=== PATIENT | female | born 1955 | race African-American/Black ===

== ENCOUNTER 2019-07-20 09:47 | Inpatient (IN) | payer OTHER, SELFPAY ==
[2019-07-20] VITALS (16 sets, daily range): BP systolic 111–176; BP diastolic 73–119; PULSE 76–148; RESP 19–28; TEMP 35.9–37.1; O2SAT 94–99; BMI 42.9
--- NOTE | 2019-07-20 | ECHO_ITS ---
Patient Info Name: Sofia Blevins Age: 64 years : 1955 Gender: Female Ht: 62 in Wt: 230 lbs BSA: 2.20 m2 HR: 94 bpm BP: 156 / 102 mmHg Heart Rhythm: Sinus Rhythm Technical Quality: Good Exam Date: 07/20/2019 4:04 PM Exam Location: [facility] Patient Status: Inpatient Admit Date: 07/20/2019 Staff Ordering Physician: Ollie Hayes MD Career Services Assistant: Osman Amado RDCS Attending Provider: Indira Siu MD Exam Type: CA echo doppler color flow Study Info Indications I51.9 - Heart disease, unspecified Complete two-dimensional, color flow and Doppler transthoracic echocardiogram is performed. Strain analysis performed. History/Risk Factors Aflutter s/p cardioversion; HTN, DM2, CHF. Summary 1. Left ventricular chamber dimension is mildly enlarged. 2. Left ventricular systolic function is mildly reduced, estimated at 35-40%. 3. Left atrial chamber dimension is moderately enlarged. 4. There is moderate mitral valve regurgitation. Left Ventricle Left ventricular chamber dimension is mildly enlarged. Left ventricular systolic function is mildly reduced, estimated at 35-40%. The left ventricular diastolic function is normal. Right Ventricle Right ventricular chamber dimension is normal. Left Atria Left atrial chamber dimension is moderately enlarged. Right Atria Right atrial chamber dimension is normal. Aortic Valve The aortic valve is normal. Pulmonic Valve The pulmonic valve is normal. Mitral Valve The mitral valve has normal leaflets. There is moderate mitral valve regurgitation. Tricuspid Valve The tricuspid valve leaflets are normal. Pericardium/Pleural The pericardium appears normal. Aorta The aortic root size at the sinus of Valsalva is normal. Left Ventricular Outflow Tract Name Value Normal LVOT 2D LVOT Diameter 1.9 cm LVOT Doppler LVOT Peak Gradient 3 mmHg LVOT Mean Gradient 2 mmHg LVOT VTI 13 cm LVOT VTI/AV VTI Ratio 0.7 LVOT Stroke Volume 40 ml LVOT CO 3.6 l/min LVOT CI 1.6 l/min/m2 Mitral Valve Name Value Normal MV Doppler MV Peak Gradient 2 mmHg MV Mean Gradient 1 mmHg MV [place] 920 cm/s2 MV PHT 40 ms MV Area (PHT) 5.6 cm2 4.0-5.0 MV Area (Cont Eq VTI) 3.0 cm2 MV Regurgitation Doppler MR Volume (Cont Eq) 62 ml MR Fraction (Cont Eq) 61 % MR ERO
--- NOTE | ~2019-07-20 | XR_ITS ---
EXAMINATION: XR chest 1V portable INDICATION: Respiratory failure TECHNIQUE: Portable AP chest at 0513 hours COMPARISON: 07/20/2019 FINDINGS: A mild diffuse interstitial pattern is present. The previously described small right pleura l effusion is no longer evident. There are stable bibasilar opacities. Cardiomegaly is unchanged. IMPRESSION: 1. Cardiomegaly with mild pulmonary edema. 2. Stable bibasilar airspace opacities, likely mild pulmonary edema or less likely pneumonia. Reviewed, dictated and finalized at location A. IMPRESSION: 1. Cardiomegaly with mild pulmonary edema. 2. Stable bibasilar airspace opacities, likely mild pulmonary edema or less lik susie pneumonia.
--- NOTE | ~2019-07-20 | XR_ITS ---
EXAMINATION: XR chest 2V DATE: 07/22/2019 09:23 INDICATION: Cough and wheezing TECHNIQUE: Frontal and lateral views of the chest are obtained COMPARISON: 07/21/2019 FINDINGS: A mild diffuse interstitial pattern persists but has decreased. There is stable cardiomegal y. No pleural effusion or pneumothorax is identified. Bibasilar airspace opacities have also decrease d. IMPRESSION: 1. Cardiomegaly with improving pulmonary edema. Reviewed, dictated and finalized at location A.
--- NOTE | ~2019-07-20 | XR_ITS ---
EXAMINATION: XR chest 1V portable DATE: 07/20/2019 10:15 INDICATION: Chest pain TECHNIQUE: frontal view of the chest was obtained. COMPARISON: None FINDINGS: Radio megaly with pulmonary vascular congestion. Opacities with peribronchial cuffing in the bilatera l lower lung zones and favor mild pulmonary edema over atelectasis or pneumonia. Small right pleural effusion. No pneumothorax. Mild to moderate degenerative skeletal changes in the spine and both shoul ders. IMPRESSION: 1. Likely congestive heart failure with cardiomegaly, pulmonary vascular congestion, small right pleu ral effusion and likely mild pulmonary edema at the lung bases. Differential includes less likely pne umonia. Reviewed, dictated and finalized at location A. IMPRESSION: 1. Likely congestive heart failure with cardiomegaly, pulmonary vascular conges tion, small right pleural effusion and likely mild pulmonary edema at the lung bases. Differential includes less likely pneumonia.
--- NOTE | ~2019-07-20 | US_ITS ---
US renal BI DATE: 07/22/2019 13:17 INDICATION: Rising serum creatinine level TECHNIQUE: Real time imaging of the kidneys and bladder area COMPARISON: None FINDINGS: Right kidney measures 8.9 cm length, left kidney 8.6 cm. No hydronephrosis of either kidne y is detected. There is an 8 mm hyperechoic mass of the lower pole of the right kidney, likely an angiomyolipoma. There is a 12 mm hyperechoic baylee of the left kidney, likely an angiomyolipoma. Approximately 7 mm left renal cyst. Bladder is not demonstrated, not sufficiently distended. 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 Reviewed, dictated and finalized at location A.
--- NOTE | 2019-07-20 09:54 | ECG_ITS ---
Measurements Intervals [place] Rate: 100 P: OR: 0 QRS: 63 QRSD: 94 T: 262 QT: 364 QTc: 469 Interpretive Statements ATRIAL FLUTTER/TACHYCARDIA WITH RAPID VENTRICULAR RESPONSE BORDERLINE T WAVE ABNORMALITY- INF/LAT LEADS BASELINE ARTIFACT- I, III, AVR, AVL, V1, V4-V6 ABNORMAL ECG Electronically Signed On 07-20-2019 11:25:43 CDT by Salty Mari D.O.
[2019-07-20 10:26] LABS: Basophils Percent Auto 0.6 % (0.2-1.2); Eosinophils Absolute Auto 0.1 K/mm3 (0-0.3); Eosinophils Percent Auto 1.3 % (0-4.4); Hematocrit 38.7 % (37.0-47.0); Hemoglobin 11.9 g/dL (12.0-15.0); Immature Granulocyte Absolute 0.01 K/mm3 (0.00-0.031); Immature Granulocyte Percent A 0.2 % (0-0.5); Lymphocytes Absolute Auto 1.71 K/mm3 (0.9-3.2); Lymphocytes Percent Auto 31.8 % (18.3-44.2); Mean Corpuscular HGB Conc 30.7 g/dl (32-36); Mean Corpuscular Hemoglobin 28.6 pg (26-34); Mean Platelet Volume 11.8 fl (7.4-10.4); Monocytes Absolute Auto 0.4 K/mm3 (0.1-0.6); Monocytes Percent Auto 6.5 % (2.6-8.5); Neutrophils Absolute Auto 3.2 K/mm3 (1.3-6.7); Neutrophils Percent Auto 59.6 % (45.5-73.1); Platelet Count Result 240 k/mm3 (150-375); Red Blood Count 4.16 M/mm3 (4.2-5.4); Red Cell Distribution Width 15.6 % (11.5-14.5); White Blood Count 5.4 K/mm3 (4.5-10.0)
--- NOTE | 2019-07-20 10:28 | ECG_ITS ---
Measurements Intervals [place] Rate: 148 P: VT: 0 QRS: 131 QRSD: 90 T: 230 QT: 206 QTc: 324 Interpretive Statements ATRIAL FLUTTER/TACHYCARDIA WITH RAPID VENTRICULAR RESPONSE CONSIDER LIMB LEAD REVERSAL NONSPECIFIC ST & T-WAVE ABNORMALITY- INF/LAT LEADS ABNORMAL ECG Electronically Signed On 07-20-2019 11:24:57 CDT by Salty Mari D.O.
[2019-07-20] MEDS: ADENOSINE IV SOLN 6 MG/2 ML VIAL IV PUSH (10:29)
[2019-07-20] MEDS: SODIUM CHLORIDE 0.9% IV 1,000 ML 999 ML (10:29)
[2019-07-20 10:39] LABS: Alanine Aminotransferase 44 U/L (4-35); Alkaline Phosphatase 106 U/L (38-126); Aspartate Amino Transferase 49 U/L (14-36); Bilirubin,Total 0.6 mg/dL (0.2-1.3); Blood Urea Nitrogen 31 mg/dL (7-17); Calcium 9.3 mg/dL (8.4-10.2); Carbon Dioxide 25 mmol/L (22-30); Chloride 107 mmol/L (98-107); Estimated CRCL calculation 30 ml/min; Estimated Glomerular Filt Rate 25; Glucose 98 mg/dL (65-105); Potassium 3.5 mmol/L (3.4-5.0); Sodium 139 mmol/L (137-145)
[2019-07-20 10:51] LABS: Troponin I 0.027 ng/mL (0.000-0.034)
[2019-07-20 11:03] LABS: Add Urine Microscopic? YES; Appearance Urine Clear (Clear); Bilirubin Urine Negative (Negative); Blood Urine Negative (Negative); Color Urine Straw (Yellow); Glucose Urine UA Negative (Negative); Ketones Urine Negative (Negative); Leukocyte Esterase Ur Negative LEU/UL (Negative); Mucus Urine Rare /lpf; Nitrate Urine Negative (Negative); Protein Urine 2+ mg/dL (Negative); RBC Urine 0-2 /hpf (0-2); Specific Grav Ur 1.011 (1.001-1.035); Squamous Epithelial Cell Urine Few /hpf (Few); Urobilinogen Urine Negative mg/dL (<2.0); WBC Urine 0-3 /hpf
[2019-07-20 11:11] LABS: Prothrombin Time 13.3 Seconds (11.1-14.7)
[2019-07-20] MEDS: AMIODARONE 150 MG/3 ML VIAL (11:13)
--- NOTE | 2019-07-20 11:19 | PC.NURSE ---
1029 Per EDP via verbal order readback give 6mg adenosine IVP due to Pt. HR not decreasing from diltiazem. Pt. tolerated administration of medication. EKG obtained, Pt. was in Atrial Flutter. Heart rate decreased but did not remain stable and increased back to 140s. Per EDP via verbal order readback give 25mg IVP of diltiazem drip at 10mls/hr. See [facility] charting for documentation. Heart did not decrease with diltiazem drip after 15mins, Per EDP via verbal order readback give 150mg amiodarone IVP slowly and stop Diltiazem drip for now. See MAR documentation for charting.
--- NOTE | 2019-07-20 11:43 | PC.NURSE ---
Assumed care of pt from Darline Sneed at 1120
--- NOTE | 2019-07-20 12:16 | ED.CHESTPAIN ---
HPI - Chest Pain General Chief Complaint: Chest Pain Stated Complaint: Heart racing Time Seen by Provider: 07/20/19 09:49 Source: patient Mode of arrival: EMS Limitations: no limitations History of Present Illness HPI narrative: 64-year-old with a history of diabetes, renal insufficiency, hypertension here with complaints of chest discomfort and palpitations since this morning. Patient states that she woke up with these complaints went to urgent care and was later referred here to the ER. She presently denies any shortness of breath. No history of nausea or vomiting or fever. She denies previous history of any coronary artery disease or irregular heartbeat. complaint: chest pain Onset (ago): hour(s) (6) Timing of current episode: constant Prior episodes: No Onset: during rest Pain location: substernal Pain radiation: none Severity: moderate Quality: other (Discomfort) Relieving factors: nothing Exacerbating factors: nothing Associated symptoms: dyspnea Risk Factors Coronary artery disease risk factors: diabetes Thoracic aortic dissection risk factors: none Related Data Home Medications Medication Instructions Recorded Confirmed allopurinol 100 mg PO DAILY 07/20/19 07/20/19 atorvastatin 07/20/19 lisinopril 20 mg PO DAILY 07/20/19 07/20/19 sitagliptin [Januvia] 25 mg PO DAILY 07/20/19 07/20/19 Allergies Allergy/AdvReac Type Severity Reaction Status Date / Time No Known Allergies Allergy Verified 07/20/19 09:57 Review of Systems Review of Systems: All systems reviewed & are unremarkable except as noted in HPI and below Constitutional: Constitutional: Reports no additional constitutional complaints Eyes: Eyes: Reports no additional eye complaints ENT: Reports system reviewed and no additional complaints, except as documented Cardiovascular: Cardiovascular: Reports no additional cardiovascular complaints Respiratory: Respiratory: Reports no additional respiratory complaints Gastrointestinal: Gastrointestinal: Reports no additional gastrointestinal complaints Musculoskeletal: Musculoskeletal: Reports no additional musculoskeletal complaints Integumentary/Breasts: Skin/Breast: Reports system reviewed and no additional complaints, except as docu Allergic/Immunologic: Allergic/Immunologic: Reports no additional allergic/immunologic complaints PMFSH Social History Social History Gender identity (if verbalized by the patient): Female Exam Narrative: Exam Narrative: GENERAL: Well-appearing, well-nourished, and in no acute distress. HEAD: Normocephalic, atraumatic. EYES: PERRLA and EOMI. ENT: Nares clear, no rhinorrhea or epistaxis. Mucous membranes moist. NECK: Supple. CHEST: Clear to auscultation. No respiratory distress. HEART: Tachycardic. ABDOMEN: Soft, nontender, nondistended, normal active bowel sounds. EXTREMITIES: Normal range of motion. No edema. SKIN: Warm, dry, no rash. NEURO: No focal deficits. Alert and oriented x3. PSYCH: Normal mood and affect. Course Course Emergency Course: EKG findings suggest of atrial flutter with rapid ventricular response I have given initially 20 mg of diltiazem IV push which did not bring the heart rate down, I have given Adenocard 6 mg to slow down to see underlying rhythm which showed a flutter it went right back up to 146, started on the diltiazem drip which did not make any difference in the heart rate. I did discuss with cardiology recommended IV amiodarone 150 mg push which did not change the heart rate. I again called and Shakir informed her about the heart rate., Advised to start on Cardizem drip and admit to ICU under the hospitalist. Patient remained stable has no complaints at this time. I did inform her about her lab work. Vital Signs Vital signs: Vital Signs Temperature 37.1 C 07/20/19 09:52 Pulse Rate 148 H 07/20/19 09:52 Respiratory Rate 25 H 07/20/19 09:52 Blood Pressure 176/
[2019-07-20 12:29] LABS: Partial Thromboplastin Time 29.9 SECONDS (22.3-36.8)
[2019-07-20] MEDS: HEPARIN SOD/D5W 100 UNITS/ML 25,000 UNITS/250 ML BAG 13 UNITS IV CONT (12:44)
[2019-07-20] MEDS: HEPARIN SODIUM 5,000 UNITS/ML VIAL 4000 UNITS IV PUSH (12:44)
[2019-07-20] MEDS: FUROSEMIDE INJ 40 MG/4 ML VIAL IV PUSH (13:21)
--- NOTE | 2019-07-20 13:32 | WPDCNINT ---
Assessment and Plan Assessment and plan (1) Atrial flutter with rapid ventricular response: Code(s): I48.92 - Unspecified atrial flutter Status: Acute Assessment and Plan: patient was given adenosine in the ED with only temporary response. she also received amiodarone bolus. Cardiology was consulted in the ED patient now on Cardizem infusion. I will add IV Lopressor. if this does not work will try amiodarone infusion echocardiogram ordered aspirin heparin infusion check TSH (2) CHF (congestive heart failure): Code(s): I50.9 - Heart failure, unspecified Status: Acute Assessment and Plan: Lasix 40 mg IV ordered 1. Likely congestive heart failure with cardiomegaly, pulmonary vascular congestion, small right pleural effusion and likely mild pulmonary edema at the lung bases. Differential includes less likely pneumonia. check echo cardiology consulted (3) Community acquired pneumonia: Code(s): J18.9 - Pneumonia, unspecified organism Status: Acute Assessment and Plan: although patient's white count is normal signs symptoms suggestive of infectious etiology. Check blood and sputum culture check influenza empiric IV Rocephin and doxycycline check lactic acid (4) Suspected COVID-19 virus infection: Code(s): R68.89 - Other general symptoms and signs Status: Acute Assessment and Plan: COVID-19 suspected. SARS-CoV-2 PCR ordered and pending Patient is in Airborne, Droplet and Contact Isolation check CRP LDH ferritin (5) CKD (chronic kidney disease): Qualifiers: Chronic kidney disease stage: unspecified stage Qualified Code(s): N18.9 - Chronic kidney disease, unspecified Code(s): N18.9 - Chronic kidney disease, unspecified Status: Acute Assessment and Plan: patient appears to have history of chronic kidney disease although baseline creatinine is unknown will try to obtain records monitor urine output creatinine and electrolytes Lasix IV given for hypervolemia (6) Hypertension: Code(s): I10 - Essential (primary) hypertension Status: Acute Assessment and Plan: patient is on Cardizem drip I will also add IV Lopressor hold lisinopril due to elevated creatinine at this time until baseline creatinine is available (7) Diabetes mellitus: Code(s): E11.9 - Type 2 diabetes mellitus without complications Status: Acute Assessment and Plan: hold Januvia start sliding scale insulin at this time Additional Plan DVT prophylaxis - patient will be on heparin drip Stress ulcer prophylaxis - not indicated Nutrition - NPO Code Status - Full Code Total Critical Care Time - 35 minutes Due to a high probability of clinically significant, life threatening deterioration, the patient required my highest level of preparedness to intervene emergently and I personally spent this critical care time directly and personally managing the patient. This critical care time included obtaining a history; examining the patient; pulse oximetry; ordering and review of studies; arranging urgent treatment with development of a management plan; evaluation of patient's response to treatment; frequent reassessment; and discussions with other providers. It was exclusive of separately billable procedures and treating other patients and teaching time. Please see Assessment and Plan section and the rest of the note for further information on patient assessment and treatment [employer] Consult Note Consult date: 07/20/19 Time Seen: 13:00 HPI: Sofia Blevins is a 64 year old female with past medical history of CKD, diabetes and hypertension who presented to ER with chief complaint of shortness of breath and cough. Patient was found to be in atrial flutter. patient was given adenosine which only temporarily help. patient was also given amiodarone bolus after consultation with Cardiology which did not wor
[2019-07-20 14:42] LABS: Alveolar/Arterial O2 Gradient 35.7 mmHg; Fractional Inspired Oxygen 21 %; HCO3 ABG 22.1 mEq/l (22.0-26.0); Oxygen Content ABG 16.5 %vol (16.0-22.0); Oxygen Saturation ABG 92.4 % (95.0-100.0); PO2 ABG 66.1 mmHg (80.0-100.0); PO2 FiO2 Ratio Arterial Blood 3.15 %; pH ABG 7.361 (7.350-7.450)
[2019-07-20 14:44] LABS: Device ROOM AIR; Modified Allen's Test Pass; Site Drawn RIGHT RADIAL
[2019-07-20] MEDS: PROPOFOL IV EMULSION 200 MG/20 ML VIAL 50 MG IV PUSH (15:00)
--- NOTE | 2019-07-20 15:16 | WPDCARDPROC ---
Cardiac Cath Procedure Note Date of procedure:: 07/20/19 Performing physician:: Roberto Yoo MD Indication:: Atrial flutter with rapid ventricular response Brief clinical history:: 64-year-old patient with a history of hypertension and diabetes presenting with abrupt onset of dyspnea found to be in atrial flutter with 2-1 conduction. Procedure Procedure performed:: DC cardioversion Sedation/Medication given:: Propofol 50 mg IV push Estimated blood loss:: No blood loss Procedure note:: Patient was placed in the supine position defibrillator patches were placed in the AP position. Patient had 2 L of nasal cannula oxygen placed with IV running in both antecubital veins. The patient was then sedated with propofol 50 mg IV push which provided excellent sedation. She was cardioverted in a synchronized fashion with 200 joules x1 shock which restored normal sinus rhythm. Findings:: Successful uncomplicated DC cardioversion of atrial flutter to sinus rhythm using 200 joules x1 shock Conclusion:: As above
--- NOTE | 2019-07-20 15:20 | PM.CNCAR ---
Assessment and Plan Additional Plan Hypertensive 64-year-old black female with from the onset of shortness of breath probably coinciding with occurrence of atrial flutter with RVR far earlier today. She has no previous cardiovascular history and does not appear to be greatly hemodynamically impairs by this but is clearly symptomatic with dyspnea. At this time I will recommend electrically cardioverting her to sinus rhythm. She is anticoagulated with an IV heparin infusion that was started in the emergency department. She is receiving IV diltiazem intravenously. I will discontinue that since it has having no significant impact on her heart rate and we are about to restore sinus rhythm. Roberto Yoo MD [facility] History of Present Illness History of Present Illness Consult date/time: Date of service: 07/20/19 15:20 Reason For Visit: Atrial fibrillation w rapid ventricular response Narrative: This is a 64-year-old patient without a prior history of cardiovascular problems and she came to the hospital emergency room a short time ago because of suddenly noticing the onset of shortness of breath at work. She works as a healthcare social worker at [employer] and suddenly developed a sense of air hunger and after having this for 2 or 3 hours it was not subsiding and she decided to come in for evaluation. In the emergency department she was found to be tachycardic her ECGs reveals that she is in atrial flutter with 2-1 conduction. She is not a very much aware of the sense of tachycardia but she is of shortness of breath. She says she had a similar episode of this the middle of last week she thinks Tuesday or Tuesday which lasted for maybe 30 minutes to an hour and then resolved. She denies any sense of exertional symptoms such as chest pain pressure or heaviness she does not notice sense of palpitation she has never had a syncopal episode she is not experiencing orthopnea PND or accumulating edema. She was seen in the emergency room by the fish receiver who also with pain history of she feeling unwell with a productive cough for 8-10 days for that reason she has also been admitted to rule out a del valle virus. She sees a primary care physician chronically for hypertension and diabetes she says she has had these ailments for about 15 years and both are under good control she takes lisinopril for blood pressure and Januvia for diabetes. Review of Systems Constitutional: Constitutional: Reports no additional constitutional complaints Eyes: Eyes: Reports no additional eye complaints ENT: Reports system reviewed and no additional complaints, except as documented Cardiovascular: Cardiovascular: Reports as per HPI Respiratory: Respiratory: Reports cough (Productive of yellow sputum) Gastrointestinal: Gastrointestinal: Reports no additional gastrointestinal complaints Musculoskeletal: Musculoskeletal: Reports no additional musculoskeletal complaints Neurologic: Reports system reviewed and no additional complaints, except as documented Endocrine: Endocrine: Reports no additional endocrine complaints Allergic/Immunologic: Allergic/Immunologic: Reports no additional allergic/immunologic complaints [facility] Past Medical History Medical History (Updated 07/20/19 @ 13:38 by Ollie Hayes MD) CKD (chronic kidney disease) Diabetes mellitus Hypertension Social History Social History (Updated 07/20/19 @ 13:34 by Ollie Hayes MD) Smoking status: Never smoker Alcohol intake: never Substance use: never Gender identity (if verbalized by the patient): Female Meds Home Medications and Allergies Home Medications Medication Instructions Recorded Confirmed Type allopurinol 50 mg PO DAILY 07/20/19 07/20/19 History lisinopril 20 mg PO DAILY 07/20/19 07/20/19 History simvastatin 40 mg PO DAILY 07/20/19 07/20/19 History sitagliptin [Januvia] 25 mg PO DAILY 07/20/19 07/20/19 History Allergies Allergy/AdvReac Type Severity Reaction Status Date / Time No Kno
--- NOTE | 2019-07-20 15:26 | ECG_ITS ---
Measurements Intervals [place] Rate: 83 P: 64 AR: 124 QRS: 68 QRSD: 94 T: 107 QT: 361 QTc: 426 Interpretive Statements SINUS RHYTHM VENTRICULAR PREMATURE COMPLEX BORDERLINE T WAVE ABNORMALITY- ANT/LAT LEADS BASELINE ARTIFACT- AVF, V1 BORDERLINE ECG Electronically Signed On 07-20-2019 16:00:16 CDT by Salty Mari D.O.
[2019-07-20 16:01] LABS: Basophils Percent Auto 0.5 % (0.2-1.2); Eosinophils Percent Auto 0.3 % (0-4.4); Hematocrit 36.3 % (37.0-47.0); Hemoglobin 11.4 g/dL (12.0-15.0); Immature Granulocyte Absolute 0.01 K/mm3 (0.00-0.031); Immature Granulocyte Percent A 0.2 % (0-0.5); Lymphocytes Absolute Auto 0.95 K/mm3 (0.9-3.2); Lymphocytes Percent Auto 16.2 % (18.3-44.2); Mean Corpuscular HGB Conc 31.4 g/dl (32-36); Mean Corpuscular Hemoglobin 29.5 pg (26-34); Mean Corpuscular Volume 93.8 fl (80-100); Mean Platelet Volume 11.7 fl (7.4-10.4); Monocytes Absolute Auto 0.4 K/mm3 (0.1-0.6); Monocytes Percent Auto 6.6 % (2.6-8.5); Neutrophils Absolute Auto 4.5 K/mm3 (1.3-6.7); Neutrophils Percent Auto 76.2 % (45.5-73.1); Platelet Count Result 224 k/mm3 (150-375); Red Blood Count 3.87 M/mm3 (4.2-5.4); Red Cell Distribution Width 15.5 % (11.5-14.5); White Blood Count 5.9 K/mm3 (4.5-10.0)
[2019-07-20 16:10] LABS: Influenza Control Positive
[2019-07-20 16:15] LABS: CRP 1.9 mg/dL (<1.0); Lactate Dehydrogenase 599 U/L (313-618)
[2019-07-20 16:21] LABS: NT Pro B Type Natriuretic Pept 5060 PG/ML (5-100)
[2019-07-20 16:25] LABS: Troponin I 0.025 ng/mL (0.000-0.034)
--- NOTE | 2019-07-20 16:35 | PM.IMHP ---
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 She is not sure she has had any exposure to covid 19. The patient has had a cough for at least 10 days which is been dry in nature. She has been afebrile. No nausea vomiting. She does have a history of diabetes chronic renal failure and hypertension. The patient was complaining of having some chest discomfort and palpitations since this morning. She has not had any previous history arrhythmias. She is not short of breath and she is on room air. She was seen by Cardiology as well as head doffer. The patient was found to be in atrial flutter with rapid response. Her chest x-ray was read as likely congestive heart failure with cardiomegaly, pulmonary vascular congestion, small right pleural effusion and likely mild pulmonary edema at the lung bases. Differential includes it less likely pneumonia. I spoke with the head doffer who felt that it was best 2. Ishmael treat the patient for community-acquired pneumonia and tested for covid 19. I also spoke with the senior mechanical estimator who had cardioverted the patient back into sinus rhythm. To that when the patient was in the emergency room they attempted adenosine which did slow the heart rate down low enough to determine that it was atrial flutter. She was also given amiodarone and started on a diltiazem drip. She was also given IV Lasix as well as Lopressor. Patient is currently in ICU and is in sinus rhythm with a controlled rate in the 80s. Date of service 07/20/2019. Review of Systems Review of Systems: All systems reviewed & are unremarkable except as noted in HPI and below Constitutional: Constitutional: Reports as per HPI and Reports no additional constitutional complaints Eyes: Eyes: Reports as per HPI and Reports no additional eye complaints ENT: Reports system reviewed and no additional complaints, except as documented and Reports Normal hearing present Cardiovascular: Cardiovascular: Reports no additional cardiovascular complaints Respiratory: Respiratory: Reports no additional respiratory complaints and Reports no additional respiratory complaints Gastrointestinal: Gastrointestinal: Reports as per HPI and Reports no additional gastrointestinal complaints Musculoskeletal: Musculoskeletal: Reports no additional musculoskeletal complaints Integumentary/Breasts: Skin/Breast: Reports system reviewed and no additional complaints, except as docu and Reports as per HPI Neurologic: Reports system reviewed and no additional complaints, except as documented, Reports as per HPI and Reports Normal hearing present Psychiatric: Psychiatric: Reports no additional psychiatric complaints and Reports as per HPI Endocrine: Endocrine: Reports no additional endocrine complaints Hematologic/Lymphatic: Hematologic/Lymphatic: Reports no additional hematologic/lymphatic complaints Allergic/Immunologic: Allergic/Immunologic: Reports no additional allergic/immunologic complaints [facility] Past Medical History Medical History (Updated 07/20/19 @ 16:52 by Mariela Arreaga NP) CKD (chronic kidney disease) Diabetes mellitus Fractured tibia and fibula With plates and screws Gout Hyperlipidemia Hypertension Surgical History Surgical History (Updated 07/20/19 @ 16:52 by Mariela Arreaga NP) History of open reduction and internal fixation (ORIF) procedure Right tibia and fibula with plates and screws Family History Family History (Updated 07/20/19 @ 16:55 by Mariela Arreaga NP) Mother Diabetes mellitus Hypertension Father Emphysema lung Social History Social History (Updated 07/20/19 @ 16:56 by Mariela Arreaga NP) Social History: The patient is single and she has 2 children. Her mother jaylene Black is a durable power united [employer] attorney for healthcare. The patient desires to be a full code. She is a cook station a
[2019-07-20] MEDS: SOTALOL HCL 80 MG TABLET PO (16:56)
[2019-07-20] MEDS: SODIUM CHLORIDE 0.9% IV 1,000 ML 100 ML IV CONT (16:58)
[2019-07-20 18:28] LABS: Glucose Point of Care 107 (65-105)
--- NOTE | 2019-07-20 18:54 | ECG_ITS ---
Measurements Intervals [place] Rate: 77 P: 73 CO: 92 QRS: 81 QRSD: 93 T: 102 QT: 392 QTc: 446 Interpretive Statements SINUS RHYTHM WITH SHORT CO INTERVAL POSSIBLE LEFT ATRIAL ENLARGEMENT NONSPECIFIC T-WAVE ABNORMALITY- ANTEROLAT/LAT LEADS BASELINE ARTIFACT- V4-V6 BORDERLINE ECG Electronically Signed On 07-21-2019 8:47:42 CDT by Salty Mari D.O.
[2019-07-20 20:10] LABS: Troponin I 0.026 ng/mL (0.000-0.034)
--- NOTE | 2019-07-20 20:17 | ADMGEN ---
This patient, Sofia Blevins, was admitted to Intensive Care Unit-4. Patient/family oriented to hospital policies and general routines including ID bracelet, bed and alarms, visiting hours, pain management, procedures, bathroom and other care routines, personal items, smoking policy, room service/diet, and visiting hours. Valuables list has been completed. Information on how to activate the Rapid Response Team has been discussed. Patient/Family are encouraged to report perceived risks to care and to ask questions if they do not understand what they are told or what they should do.
[2019-07-20 20:22] LABS: Partial Thromboplastin Time > 200.0 SECONDS (22.3-36.8)
[2019-07-20] MEDS: ONDANSETRON INJ 4 MG/2 ML VIAL IV PUSH (21:02)
[2019-07-20 21:09] LABS: Glucose Point of Care 188 (65-105)
[2019-07-21] VITALS (15 sets, daily range): BP systolic 100–140; BP diastolic 60–91; PULSE 62–87; RESP 14–28; TEMP 35.5–36.7; O2SAT 94–100
[2019-07-21 05:02] LABS: Basophils Percent Auto 0.2 % (0.2-1.2); Hematocrit 27.4 % (37.0-47.0); Hemoglobin 8.7 g/dL (12.0-15.0); Immature Granulocyte Absolute 0.01 K/mm3 (0.00-0.031); Immature Granulocyte Percent A 0.2 % (0-0.5); Lymphocytes Percent Auto 23.7 % (18.3-44.2); Mean Corpuscular HGB Conc 31.8 g/dl (32-36); Mean Corpuscular Hemoglobin 29.5 pg (26-34); Mean Corpuscular Volume 92.9 fl (80-100); Mean Platelet Volume 11.5 fl (7.4-10.4); Monocytes Absolute Auto 0.3 K/mm3 (0.1-0.6); Monocytes Percent Auto 6.1 % (2.6-8.5); Neutrophils Absolute Auto 3.5 K/mm3 (1.3-6.7); Neutrophils Percent Auto 69.8 % (45.5-73.1); Platelet Count Result 178 k/mm3 (150-375); Red Blood Count 2.95 M/mm3 (4.2-5.4); Red Cell Distribution Width 15.4 % (11.5-14.5); White Blood Count 5.1 K/mm3 (4.5-10.0)
[2019-07-21 05:20] LABS: Hemoglobin A1C 5.7 % (<5.7)
[2019-07-21] MEDS: SOTALOL HCL 80 MG TABLET PO ×2 (05:52→17:53)
[2019-07-21 06:24] LABS: Alanine Aminotransferase 46 U/L (4-35); Albumin Level 3.4 g/dL (3.5-5.1); Alkaline Phosphatase 93 U/L (38-126); Aspartate Amino Transferase 47 U/L (14-36); Bilirubin,Total 0.5 mg/dL (0.2-1.3); Blood Urea Nitrogen 31 mg/dL (7-17); Calcium 8.6 mg/dL (8.4-10.2); Carbon Dioxide 25 mmol/L (22-30); Chloride 104 mmol/L (98-107); Estimated CRCL calculation 27 ml/min; Estimated Glomerular Filt Rate 26; Glucose 95 mg/dL (65-105); Magnesium 1.8 mg/dL (1.6-2.3); Potassium 3.3 mmol/L (3.4-5.0); Sodium 137 mmol/L (137-145)
[2019-07-21 06:27] LABS: Partial Thromboplastin Time > 200.0 SECONDS (22.3-36.8)
--- NOTE | 2019-07-21 07:50 | WPDINTPN ---
Progress Note: A&P Assessment and Plan (1) Atrial flutter with rapid ventricular response: Code(s): I48.92 - Unspecified atrial flutter Status: Acute Assessment and Plan: patient was given adenosine in the ED with only temporary response. she also received amiodarone bolus. Cardiology was consulted in the ED and patient was started on Cardizem infusion. in ICU patient was cardioverted by Cardiology patient was also started on sotalol she has stated normal sinus rhythm echocardiogram ordered aspirin heparin infusion at this time. Cardiology planning to transition to oral anticoagulation today normal TSH (2) CHF (congestive heart failure): Code(s): I50.9 - Heart failure, unspecified Status: Acute Assessment and Plan: Lasix 40 mg IV was given yesterday patient now on nasal cannula and in no respiratory distress check echo will hold further Lasix at this time due to elevated creatinine (3) Community acquired pneumonia: Code(s): J18.9 - Pneumonia, unspecified organism Status: Acute Assessment and Plan: although patient's white count is normal signs symptoms suggestive of infectious etiology. blood and sputum culture pending negative influenza on empiric IV Rocephin and doxycycline (4) Suspected COVID-19 virus infection: Code(s): R68.89 - Other general symptoms and signs Status: Acute Assessment and Plan: COVID-19 suspected. SARS-CoV-2 PCR ordered and pending Patient is in Airborne, Droplet and Contact Isolation inflammatory markers like CRP LDH ferritin are negative if PCR is negative will discontinue isolation measures (5) CKD (chronic kidney disease): Qualifiers: Chronic kidney disease stage: unspecified stage Qualified Code(s): N18.9 - Chronic kidney disease, unspecified Code(s): N18.9 - Chronic kidney disease, unspecified Status: Acute Assessment and Plan: patient appears to have history of chronic kidney disease although baseline creatinine is unknown will try to obtain records monitor urine output creatinine and electrolytes Lasix IV was given for hypervolemia (6) Hypertension: Code(s): I10 - Essential (primary) hypertension Status: Acute Assessment and Plan: treat as needed (7) Diabetes mellitus: Code(s): E11.9 - Type 2 diabetes mellitus without complications Status: Acute Assessment and Plan: hold Januvia on sliding scale insulin at this time Additional Plan DVT prophylaxis - patient is on heparin drip Stress ulcer prophylaxis - not indicated Nutrition - advance diet today Code Status - Full Code transfer out of ICU today case discussed with cardiology and Internal Medicine Subjective Date/time seen: 07/21/19 0750 overnight events reviewed. Patient was cardioverted by Cardiology yesterday afternoon. Patient has done well since then and feels better today. She denies any shortness of breath. she continues to have cough. Denies any fever chest pain nausea. she had 1 episode of vomiting. One loose bowel movement overnight. no headache or abdominal pain. no evidence of blood in stool or urine Review of Systems Review of Systems: All systems reviewed & are unremarkable except as noted in HPI and below Exam Narrative: Exam Narrative: General: Pt is alert awake and in NAD Lungs/Chest: Trachea central Clear BS B/L, Bibasilar crackles, no wheezing. mild tachypnea Cardiac: regular rate and rhythm. Normal S1 S2. No murmurs Circulation: Pedal pulses are intact and symmetrical. Abdomen: Normal bowel sounds.. Soft. NT. ND. Extremities: No clubbing, cyanosis. Warm. slight edema bilaterally : no tenderness in pelvic area Neurologic: Follows commands. Moves all 4 extremities PERRL, alert oriented x3 Skin: No Rash Objective Data Vital Signs Vital Signs: Vital Signs - 24 hr 07/20/19 09:52 07/20/19
[2019-07-21] MEDS: ASPIRIN 325 MG TABLET PO (08:48)
[2019-07-21] MEDS: POTASSIUM CHLORIDE 20 MEQ TABLET 40 MEQ PO (08:48)
[2019-07-21] MEDS: allopurinoL 50 MG TABLET PO (08:49)
[2019-07-21] MEDS: SIMVASTATIN 20 MG TABLET 40 MG PO (08:49)
--- NOTE | 2019-07-21 09:44 | PM.PNCARD ---
Progress Note: A&P Additional Plan 64-year-old female with: Episode of symptomatic atrial flutter with RVR. Currently in sinus rhythm following DC cardioversion yesterday evening. Patient is now been started on antiarrhythmic therapy in the form of sotalol. I will discontinue heparin and start Xarelto for systemic anticoagulation. SHAHEEN-inhibitor will be started in the form of ramipril as her echocardiogram demonstrates [id number] left ventricular systolic dysfunction, left atrial enlargement and moderate mitral regurgitation resulting from annular dilation. The structure of her mitral valve leaflets appears unremarkable. The MR is functional and related to LV dysfunction and enlargement in my opinion. Will have to keep her in the hospital at least until tomorrow to ensure that she is not proarrhythmic to sotalol. Twelve lead ECG should be checked tomorrow to watch QT interval. She can moved to [facility] Roberto Yoo MD [facility] Subjective Date/time seen: Date of service: 07/21/19 09:44 Interval history: Follow-up visit in the 64-year-old female with symptomatic atrial flutter with RVR Patient electrically cardioverted yesterday afternoon to normal sinus rhythm History of hypertension and axd-[id number] diabetes Asymptomatic today feels better Exam Const: General: comfortable and no acute distress HENMT: Mouth: Yes moist mucous membranes Eyes: Sclera: sclerae normal Pupils: Equal, round and reactive pupils present Neck: Neck: supple and no JVD Thyroid: thyroid normal Other: No audible carotid bruits Resp: Effort & Inspection: normal respiratory effort Auscultation: clear to auscultation bilaterally Cardio: Rate: regular rate Rhythm: regular rhythm GI: Auscultation: normal bowel sounds Skin: General skin exam: normal color Neuro: Cognition (Neuro): normal cognition Extrem: General: normal to inspection Objective Data Vital Signs Vital Signs: Vital Signs - 24 hr 07/20/19 09:52 07/20/19 10:30 07/20/19 10:53 Temperature 37.1 C Pulse Rate 148 H 146 H 78 Respiratory Rate 25 H Blood Pressure 176/119 H Pulse Oximetry 97 07/20/19 11:43 07/20/19 12:58 07/20/19 14:00 Temperature Pulse Rate 142 H 147 H 147 H Respiratory Rate 20 22 H Blood Pressure 142/99 H 175/117 H Pulse Oximetry 94 95 07/20/19 14:22 07/20/19 15:00 07/20/19 15:05 Temperature Pulse Rate 147 H 145 H 146 H Respiratory Rate 22 H 26 H 28 H Blood Pressure 156/108 H 156/108 H Pulse Oximetry 96 99 97 07/20/19 15:10 07/20/19 16:00 07/20/19 16:56 Temperature 36.2 C L Pulse Rate 78 92 103 H Respiratory Rate 24 H 28 H Blood Pressure 127/88 158/102 H Pulse Oximetry 99 96 07/20/19 17:15 07/20/19 18:00 07/20/19 20:00 Temperature 35.9 C L Pulse Rate 93 89 79 Respiratory Rate 27 H 19 25 H Blood Pressure 131/89 111/80 Pulse Oximetry 95 96 94 07/20/19 22:00 07/21/19 00:00 07/21/19 01:39 Temperature 35.9 C L Pulse Rate 76 76 80 Respiratory Rate 25 H 25 H 20 Blood Pressure 115/73 123/80 140/91 H Pulse Oximetry 96 97 95 07/21/19 04:00 07/21/19 05:52 07/21/19 05:55 Temperature 35.5 C L Pulse Rate 81 81 86 Respiratory Rate 25 H 24 H Blood Pressure 129/76 120/75 Pulse Oximetry 100 96 Intake/Output Intake/Output: Intake & Output 07/18/19 07/19/19 07/20/19 07/21/19 23:59 23:59 23:59 23:59 Intake Total 1685 120 Output Total 1600 Balance 85 120 Meds/Results Medications: Active Medications Generic Name Dose Route Start Last Admin Trade Name Freq PRN Reason Stop Dose Admin Acetaminophen 650 mg 07/20/19 12:39 Tylenol Tablet PO Q4H PRN Mild Pain (1-3) or Fever Allopurinol 50 mg 07/21/19 09:00 07/21/19 08:49 Zyloprim PO 50 mg DAILY MARK Administration Dextrose 12.5 gm 07/20/19 13:27 Dextrose 50% Syringe IV PUSH PRN PRN Hypoglycemia Protocol Glucagon 1 mg 07/20/19 13:27 Glucagon For Inj IM PRN [facility]
[2019-07-21] MEDS: ramipriL 5 MG CAPSULE PO (11:09)
[2019-07-21 11:30] LABS: Glucose Point of Care 120 (65-105)
[2019-07-21 13:34] LABS: SARS-CoV-2 RNA PCR Negative
--- NOTE | 2019-07-21 15:21 | PM.IMPN ---
Progress Note: A&P Assessment and Plan (1) Atrial flutter with rapid ventricular response: Code(s): I48.92 - Unspecified atrial flutter Status: Acute Assessment and Plan: . The patient was cardioverted 07/19 and is now in sinus rhythm. The patient is going to be on oral sotalol. Transitioned from heparin to Xarelto THYROID LEVEL WAS CHECKED AND IS NORMAL. (2) CHF (congestive heart failure): Code(s): I50.9 - Heart failure, unspecified Status: Acute Assessment and Plan: echo EF 35-40%. With enlarged left atrium.. Now on SHAHEEN-inhibitor, beta-snehal, and received diuretic yesterday.. 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 With normal white cell count. And blood cultures return negative will discontinue antibiotics 07/21 (4) Suspected COVID-19 virus infection: Code(s): R68.89 - Other general symptoms and signs Status: Acute Assessment and Plan: Patient has been tested and is negative Influenza is negative. CRP is slightly elevated. And the lactate dehydrogenase is negative. (5) Hyperlipidemia: Code(s): E78.5 - Hyperlipidemia, unspecified Status: Chronic Assessment and Plan: Continue with simvastatin. (6) Gout: Code(s): M10.9 - Gout, unspecified Status: Chronic Assessment and Plan: Continue with allopurinol. (7) CKD (chronic kidney disease): Qualifiers: Chronic kidney disease stage: unspecified stage Qualified Code(s): N18.9 - Chronic kidney disease, unspecified Code(s): N18.9 - Chronic kidney disease, unspecified Status: Acute Assessment and Plan: Patient's creatinine is 2.0 and I cannot tell where her baseline is. . CHECK BMP DAILY (8) Hypertension: Code(s): I10 - Essential (primary) hypertension Status: Acute Assessment and Plan: Patient's blood pressure is good today on SHAHEEN-inhibitor a and sotalol. on p.r.n. hydralazine as well. (9) Diabetes mellitus: Code(s): E11.9 - Type 2 diabetes mellitus without complications Status: Acute Assessment and Plan: Accu-Cheks AC and HS [id number] 5.7 (10) Anemia: Code(s): D64.9 - Anemia, unspecified Status: Acute Assessment and Plan: Probable anemia of chronic disease but hemoglobin dropped more overnight. Follow CBC and check iron TIBC and B12 level Subjective Date/time seen: 07/21/19 15:21 Interval history: 64-year-old hypertensive type 2 diabetic with chronic renal failure admitted with palpitations and found to be in atrial flutter. She was electrical cardioverted and placed on sotalol and remains in sinus rhythm at present time. No complaints fever chills cough is and no further palpitation with no chest pain.. Feels much better this a.m.. Exam Narrative: Exam Narrative: Blood pressure 114/70 pulse 74 saturating 98% on room air afebrile Lungs are clear CV regular rate rhythm no murmurs or gallops Abdomen is soft nontender no masses Extremities without edema distal pulses are 2+ Neuro alert pleasant cooperative no focal deficits Objective Data Vital Signs Vital Signs: Vital Signs - 24 hr 07/20/19 16:00 07/20/19 16:56 07/20/19 17:15 Temperature 36.2 C L Pulse Rate 92 103 H 93 Respiratory Rate 28 H 27 H Blood Pressure 158/102 H Pulse Oximetry 96 95 07/20/19 18:00 07/20/19 20:00 07/20/19 22:00 Temperature 35.9 C L Pulse Rate 89 79 76 Respiratory Rate 19 25 H 25 H Blood Pressure 131/89 111/80 115/73 Pulse Oximetry 96 94 96 07/21/19 00:00 07/21/19 01:39 07/21/19 04:00 Temperature 35.9
[2019-07-21 15:46] LABS: Basophils Percent Auto 0.6 % (0.2-1.2); Eosinophils Absolute Auto 0.1 K/mm3 (0-0.3); Eosinophils Percent Auto 1.1 % (0-4.4); Hematocrit 34.3 % (37.0-47.0); Hemoglobin 10.6 g/dL (12.0-15.0); Immature Granulocyte Absolute 0.02 K/mm3 (0.00-0.031); Immature Granulocyte Percent A 0.4 % (0-0.5); Lymphocytes Absolute Auto 1.79 K/mm3 (0.9-3.2); Lymphocytes Percent Auto 34.1 % (18.3-44.2); Mean Corpuscular HGB Conc 30.9 g/dl (32-36); Mean Platelet Volume 11.1 fl (7.4-10.4); Monocytes Absolute Auto 0.5 K/mm3 (0.1-0.6); Monocytes Percent Auto 9.1 % (2.6-8.5); Neutrophils Absolute Auto 2.9 K/mm3 (1.3-6.7); Neutrophils Percent Auto 54.7 % (45.5-73.1); Nucleated Red Blood Cells Perc 0.4 % (0.0-0.2); Platelet Count Result 212 k/mm3 (150-375); Red Blood Count 3.65 M/mm3 (4.2-5.4); Red Cell Distribution Width 15.6 % (11.5-14.5); White Blood Count 5.3 K/mm3 (4.5-10.0)
[2019-07-21 16:21] LABS: Glucose Point of Care 109 (65-105)
[2019-07-21] MEDS: RIVAROXABAN 20 MG TABLET PO (17:53)
--- NOTE | 2019-07-21 20:03 | ECG_ITS ---
Measurements Intervals [place] Rate: 71 P: 64 [place]: 120 QRS: 65 QRSD: 94 T: 83 QT: 511 QTc: 557 Interpretive Statements SINUS RHYTHM BORDERLINE T WAVE ABNORMALITY- LATERAL LEADS PROLONGED QT INTERVAL ABNORMAL ECG Electronically Signed On 07-23-2019 13:19:56 CDT by Salty Mari D.O.
[2019-07-21 20:42] LABS: Glucose Point of Care 142 (65-105)
[2019-07-21] MEDS: ONDANSETRON INJ 4 MG/2 ML VIAL IV PUSH (20:47)
[2019-07-21] MEDS: GUAIFENESIN/DEXTROMETHORPHAN 10 ML UDC PO (20:48)
[2019-07-22] VITALS (24 sets, daily range): BP systolic 117–146; BP diastolic 64–91; PULSE 69–107; RESP 16–24; TEMP 35.5–36.8; O2SAT 94–100
[2019-07-22 05:40] LABS: Alanine Aminotransferase 51 U/L (4-35); Albumin Level 3.3 g/dL (3.5-5.1); Alkaline Phosphatase 104 U/L (38-126); Aspartate Amino Transferase 56 U/L (14-36); Bilirubin,Total 0.3 mg/dL (0.2-1.3); Blood Urea Nitrogen 42 mg/dL (7-17); Calcium 8.6 mg/dL (8.4-10.2); Carbon Dioxide 24 mmol/L (22-30); Chloride 105 mmol/L (98-107); Estimated CRCL calculation 20 ml/min; Estimated Glomerular Filt Rate 18; Glucose 93 mg/dL (65-105); Potassium 3.5 mmol/L (3.4-5.0); Sodium 136 mmol/L (137-145)
[2019-07-22 06:06] LABS: Glucose Point of Care 103 (65-105)
[2019-07-22 06:07] LABS: Iron 51 ug/dL (37-170)
[2019-07-22 06:16] LABS: Percent Iron Saturation 18 % (20-50)
[2019-07-22] MEDS: allopurinoL 50 MG TABLET PO (08:31)
[2019-07-22] MEDS: ramipriL 5 MG CAPSULE PO (08:31)
[2019-07-22] MEDS: SIMVASTATIN 20 MG TABLET 40 MG PO (08:31)
[2019-07-22] MEDS: GUAIFENESIN/DEXTROMETHORPHAN 10 ML UDC PO (08:49)
--- NOTE | 2019-07-22 10:25 | PM.PNCARD ---
Progress Note: A&P Additional Plan Patient is relatively stable. Her QT interval has lengthened on sotalol. I will reduce the dose for this reason and because of the wheezing and stop azithromycin. Anticipate discharge tomorrow barring any problems Will conduct an ischemia evaluation as an outpatient because of LV systolic dysfunction Roberto Yoo MD [facility] Subjective Date/time seen: Date of service: 07/22/19 10:25 Interval history: Follow-up visit in 64-year-old lady with atrial flutter of unknown chronicity Patient was cardioverted electrically to sinus rhythm and placed on treatment with sotalol and Xarelto. She has also been started on ramipril as echocardiogram demonstrated modest LV systolic dysfunction Patient feels better this morning she did notice some wheezing last night which affected her ability to get to sleep. Staff held this morning's dose of sotalol because of QT interval Exam Const: General: comfortable and no acute distress HENMT: Mouth: Yes moist mucous membranes Eyes: Sclera: sclerae normal Pupils: Equal, round and reactive pupils present Neck: Neck: supple and no JVD Thyroid: thyroid normal Resp: Effort & Inspection: normal respiratory effort Auscultation: clear to auscultation bilaterally Other: No audible wheezing at this time Cardio: Rate: regular rate Rhythm: regular rhythm GI: Auscultation: normal bowel sounds Neuro: Cognition (Neuro): normal cognition Extrem: General: normal to inspection Objective Data Vital Signs Vital Signs: Vital Signs - 24 hr 07/21/19 12:00 07/21/19 14:00 07/21/19 16:00 Temperature 36.7 C 36.4 C Pulse Rate 74 76 77 Respiratory Rate 23 H 23 H 28 H Blood Pressure 113/71 112/76 127/81 Pulse Oximetry 98 94 98 07/21/19 18:00 07/21/19 19:46 07/21/19 20:00 Temperature 36.6 C Pulse Rate 78 74 74 Respiratory Rate 16 16 Blood Pressure 100/60 Pulse Oximetry 98 98 07/21/19 22:00 07/21/19 23:26 07/22/19 00:00 Temperature 36.2 C L Pulse Rate 70 70 70 Respiratory Rate 18 18 Blood Pressure 110/69 Pulse Oximetry 100 100 07/22/19 02:00 07/22/19 03:49 07/22/19 04:00 Temperature 36.4 C Pulse Rate 71 71 78 Respiratory Rate 16 16 Blood Pressure 146/83 H Pulse Oximetry 99 99 07/22/19 05:35 07/22/19 07:42 07/22/19 08:00 Temperature 36.1 C L Pulse Rate 73 81 74 Respiratory Rate 20 Blood Pressure 137/91 H Pulse Oximetry 100 07/22/19 10:02 Temperature Pulse Rate 82 Respiratory Rate Blood Pressure Pulse Oximetry Intake/Output Intake/Output: Intake & Output 07/19/19 07/20/19 07/21/19 07/22/19 23:59 23:59 23:59 23:59 Intake Total 1685 1526 540 Output Total 1600 0 Balance 85 1526 540 Meds/Results Medications: Active Medications Generic Name Dose Route Start Last Admin Trade Name Freq PRN Reason Stop Dose Admin Acetaminophen 650 mg 07/20/19 12:39 Tylenol Tablet PO Q4H PRN Mild Pain (1-3) or Fever Allopurinol 50 mg 07/21/19 09:00 07/22/19 08:31 Zyloprim PO 50 mg DAILY MARK Administration Dextrose 12.5 gm 07/20/19 13:27 Dextrose 50% Syringe IV PUSH PRN PRN Hypoglycemia Protocol Glucagon 1 mg 07/20/19 13:27 Glucagon For Inj IM PRN PRN Hypoglycemia Protocol Glucose 15 gm 07/20/19 13:27 Glutose 15 PO PRN PRN Hypoglycemia Protocol Guaifenesin/Dextromethorphan 10 ml 07/20/19 19:56 07/22/19 08:49 Robitussin-Dm Syrup PO 10 ml Q4H PRN Administration Cough Ceftriaxone Sodium 2 gm in 100 mls @ 200 mls/hr 07/20/19 14:00 07/21/19 16:07 Rocephin 2 Gm/D5w 100 Ml IVPB Infused Q24H MARK Infusion Dextrose 1,000 mls @ 100 mls/hr 07/20/19 13:27 Dextrose 5% 1,000 Ml IVPB PRN PRN Hypoglycemia Protocol Insulin Aspart 3 - 6 units 07/21/19 06:30 07/22/19 06:03 Novolog SUB-Q Not Given AC MARK Protocol Ipratropium [place] 0.5 mg 07/22/19 08
[2019-07-22 12:05] LABS: Glucose Point of Care 84 (65-105)
[2019-07-22] MEDS: SOTALOL HCL 40 MG TABLET PO ×2 (12:18→21:56)
[2019-07-22 13:47] LABS: Basophils Percent Auto 0.6 % (0.2-1.2); Eosinophils Absolute Auto 0.1 K/mm3 (0-0.3); Eosinophils Percent Auto 1.2 % (0-4.4); Hematocrit 37.2 % (37.0-47.0); Hemoglobin 11.5 g/dL (12.0-15.0); Immature Granulocyte Absolute 0.04 K/mm3 (0.00-0.031); Immature Granulocyte Percent A 0.6 % (0-0.5); Lymphocytes Percent Auto 26.1 % (18.3-44.2); Mean Corpuscular HGB Conc 30.9 g/dl (32-36); Mean Corpuscular Hemoglobin 28.9 pg (26-34); Mean Corpuscular Volume 93.5 fl (80-100); Mean Platelet Volume 11.7 fl (7.4-10.4); Monocytes Absolute Auto 0.4 K/mm3 (0.1-0.6); Monocytes Percent Auto 6.5 % (2.6-8.5); Neutrophils Absolute Auto 4.2 K/mm3 (1.3-6.7); Platelet Count Result 227 k/mm3 (150-375); Red Blood Count 3.98 M/mm3 (4.2-5.4); Red Cell Distribution Width 15.5 % (11.5-14.5); White Blood Count 6.5 K/mm3 (4.5-10.0)
--- NOTE | 2019-07-22 14:18 | ECG_ITS ---
Measurements Intervals [place] Rate: 76 P: 75 [place]: 123 QRS: 66 QRSD: 97 T: 83 QT: 397 QTc: 448 Interpretive Statements SINUS RHYTHM NONSPECIFIC T-WAVE ABNORMALITY- LATERAL LEADS BORDERLINE ECG Electronically Signed On 07-22-2019 15:05:07 CDT by Salty Mari D.O.
[2019-07-22 16:23] LABS: Glucose Point of Care 89 (65-105)
[2019-07-22] MEDS: RIVAROXABAN 20 MG TABLET PO (17:13)
--- NOTE | 2019-07-22 17:33 | PM.IMPN ---
Progress Note: A&P Assessment and Plan (1) Atrial flutter with rapid ventricular response: Code(s): I48.92 - Unspecified atrial flutter Status: Acute Assessment and Plan: . The patient was cardioverted 07/19 and is now in sinus rhythm. The patient is on oral sotalol and Xarelto . Sotalol dose was decreased with increasing QT and with her renal function. THYROID LEVEL WAS CHECKED AND IS NORMAL. (2) CHF (congestive heart failure): Code(s): I50.9 - Heart failure, unspecified Status: Acute Assessment and Plan: echo EF 35-40%. With enlarged left atrium.. Now on SHAHEEN-inhibitor, beta-snehal, and received diuretic yesterday.. 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 With normal white cell count. Repeat chest x-ray today showed clearing of the infiltrates which were fluid. Blood culture so far negative. Azithromycin discontinued with increasing QT interval and has had 3 doses of ceftriaxone so will discontinue that also Xopenex for bronchospasm Diagnosis of pneumonia is ruled out (4) Suspected COVID-19 virus infection: Code(s): R68.89 - Other general symptoms and signs Status: Acute Assessment and Plan: Patient has been tested and is negative. Influenza is also negative. CRP is slightly elevated. And the lactate dehydrogenase is negative. (5) Hyperlipidemia: Code(s): E78.5 - Hyperlipidemia, unspecified Status: Chronic Assessment and Plan: Continue with simvastatin. (6) Gout: Code(s): M10.9 - Gout, unspecified Status: Chronic Assessment and Plan: Continue with allopurinol. (7) CKD (chronic kidney disease): Qualifiers: Chronic kidney disease stage: unspecified stage Qualified Code(s): N18.9 - Chronic kidney disease, unspecified Code(s): N18.9 - Chronic kidney disease, unspecified Status: Acute Assessment and Plan: Patient's creatinine is up to 3.1. And I cannot tell where her baseline is. . Urine benign. Check renal sonogram. CHECK BMP DAILY (8) Hypertension: Code(s): I10 - Essential (primary) hypertension Status: Acute Assessment and Plan: Patient's blood pressure is good today on SHAHEEN-inhibitor and sotalol. . (9) Diabetes mellitus: Code(s): E11.9 - Type 2 diabetes mellitus without complications Status: Acute Assessment and Plan: Accu-Cheks AC and HS [id number] 5.7 (10) Anemia: Code(s): D64.9 - Anemia, unspecified Status: Acute Assessment and Plan: Probable anemia of chronic disease but hemoglobin dropped more overnight to 8.7 which may have been lab error because repeat today back to 11.5 similar to when she was on admission with normal iron studies and B12 at 398 Subjective Date/time seen: 07/22/19 17:33 Interval history: Date of visit 07/21. 64-year-old hypertensive type 2 diabetic with chronic renal failure admitted with palpitations and found to be in atrial flutter. She was electrical cardioverted and placed on sotalol and remains in sinus rhythm at present time. No complaints fever chills. Some some cough and wheezing but no chills and no further palpitations or chest discomfort.. Exam Narrative: Exam Narrative: Blood pressure 118/64 pulse 72 saturating 95% on room air afebrile Lungs are clear with end expiratory wheezes CV regular rate rhythm no murmurs or gallops Abdomen is soft nontender no masses Extremities without edema distal pulses are 2+ Neuro alert pleasant cooperative no focal deficits Objective Data Vital Signs Vital Signs: Vit
[2019-07-22 20:46] LABS: Glucose Point of Care 88 (65-105)
[2019-07-22] MEDS: MELATONIN 3 MG TABLET PO (21:57)
--- NOTE | 2019-07-22 23:55 | ECG_ITS ---
Measurements Intervals [place] Rate: 71 P: 78 [place]: 116 QRS: 72 QRSD: 100 T: 83 QT: 420 QTc: 456 Interpretive Statements SINUS RHYTHM WITH SHORT MA INTERVAL POSSIBLE LEFT ATRIAL ENLARGEMENT INCOMPLETE RIGHT BUNDLE BRANCH BLOCK BORDERLINE T WAVE ABNORMALITY- ANT/LAT LEADS BORDERLINE ECG Electronically Signed On 07-23-2019 7:02:47 CDT by Salty Mari D.O.
[2019-07-23] VITALS (21 sets, daily range): BP systolic 134–165; BP diastolic 73–90; PULSE 69–107; RESP 16–20; TEMP 36.1–36.7; O2SAT 97–100
[2019-07-23 05:21] LABS: Alanine Aminotransferase 45 U/L (4-35); Albumin Level 3.1 g/dL (3.5-5.1); Alkaline Phosphatase 105 U/L (38-126); Aspartate Amino Transferase 37 U/L (14-36); Bilirubin,Total 0.3 mg/dL (0.2-1.3); Blood Urea Nitrogen 42 mg/dL (7-17); Calcium 8.7 mg/dL (8.4-10.2); Carbon Dioxide 28 mmol/L (22-30); Chloride 105 mmol/L (98-107); Estimated CRCL calculation 24 ml/min; Estimated Glomerular Filt Rate 23; Glucose 91 mg/dL (65-105); Phosphorus 4.2 mg/dL (2.5-4.5); Potassium 3.5 mmol/L (3.4-5.0); Sodium 138 mmol/L (137-145)
[2019-07-23 07:02] LABS: Hepatitis B Surface Antigen Negative (Negative)
[2019-07-23 07:07] LABS: HAV RESULT Negative (Negative); Hepatitis B Core IgM Result Negative (Negative)
[2019-07-23 07:19] LABS: Hepatitis C Virus Antibody Negative (Negative)
[2019-07-23 08:25] LABS: Glucose Point of Care 86 (65-105)
[2019-07-23] MEDS: LEVALBUTEROL HFA (*SP) 15 GM INHALER 2 PUFF INHALATION (08:53)
[2019-07-23] MEDS: POTASSIUM CHLORIDE 20 MEQ TABLET 40 MEQ PO (09:16)
[2019-07-23] MEDS: allopurinoL 50 MG TABLET PO (09:17)
[2019-07-23] MEDS: ramipriL 5 MG CAPSULE PO (09:17)
[2019-07-23] MEDS: SIMVASTATIN 20 MG TABLET 40 MG PO (09:17)
[2019-07-23] MEDS: SOTALOL HCL 40 MG TABLET PO (09:18)
--- NOTE | 2019-07-23 11:08 | ECG_ITS ---
Measurements Intervals [place] Rate: 71 P: 68 [place]: 122 QRS: 67 QRSD: 93 T: 78 QT: 456 QTc: 496 Interpretive Statements SINUS RHYTHM PROLONGED QT INTERVAL ABNORMAL ECG Electronically Signed On 07-23-2019 11:46:24 CDT by Salty Mari D.O.
--- NOTE | 2019-07-23 11:24 | PM.PNCARD ---
Progress Note: A&P Assessment and Plan (1) Hypertension: Code(s): I10 - Essential (primary) hypertension Status: Acute Assessment and Plan: near goal (2) Atrial flutter with rapid ventricular response: Code(s): I48.92 - Unspecified atrial flutter Status: Acute Assessment and Plan: Will discontinue her sotalol completely. Her QTC is nearly 500 milliseconds. Previously anticipated discharge later today but given the significant lengthening of her QT interval, I think she should stay another 24 hours for observation to make sure shortness back up. Continue anticoagulation (3) CHF (congestive heart failure): Code(s): I50.9 - Heart failure, unspecified Status: Acute Assessment and Plan: continue ramipril. No beta-snehal because of wheeziness Additional Plan Will conduct an ischemia evaluation as an outpatient because of LV systolic dysfunction Subjective Date/time seen: 07/23/19 11:24 Interval history: Follow-up visit in 64-year-old lady with atrial flutter of unknown chronicity Patient was cardioverted electrically to sinus rhythm and placed on treatment with sotalol and Xarelto. She has also been started on ramipril as echocardiogram demonstrated modest LV systolic dysfunction Date is service 07/23/2019: she is feeling okay. She denies any chest pain, shortness of breath. Anxious to go home better QTC did lengthen Further and is almost at 500 milliseconds. Review of Systems Constitutional: Constitutional: Reports no additional constitutional complaints Eyes: Eyes: Reports no additional eye complaints ENT: Reports system reviewed and no additional complaints, except as documented Cardiovascular: Cardiovascular: Reports as per HPI Respiratory: Respiratory: Reports cough (Productive of yellow sputum) Gastrointestinal: Gastrointestinal: Reports no additional gastrointestinal complaints Musculoskeletal: Musculoskeletal: Reports no additional musculoskeletal complaints Neurologic: Reports system reviewed and no additional complaints, except as documented Endocrine: Endocrine: Reports no additional endocrine complaints Allergic/Immunologic: Allergic/Immunologic: Reports no additional allergic/immunologic complaints Exam Const: General: comfortable and no acute distress Other: Overweight black female comfortable cooperative in no distress of any sort HENMT: Mouth: Yes moist mucous membranes Eyes: Sclera: sclerae normal Pupils: Equal, round and reactive pupils present Neck: Neck: supple and no JVD Thyroid: thyroid normal Other: No audible carotid bruits Resp: Effort & Inspection: normal respiratory effort Auscultation: clear to auscultation bilaterally Other: No audible wheezing at this time Cardio: Rate: regular rate and tachycardic Rhythm: regular rhythm Other: No audible murmur or gallop PMI is difficult to palpate GI: Auscultation: normal bowel sounds Skin: General skin exam: normal color Neuro: Cranial nerves: Yes Equal, round and reactive pupils present Cognition (Neuro): normal cognition Extrem: General: normal to inspection Objective Data Vital Signs Vital Signs: Vital Signs - 24 hr 07/22/19 11:47 07/22/19 12:00 07/22/19 12:18 Temperature 35.5 C L Pulse Rate 74 75 107 H Respiratory Rate 24 H Blood Pressure 144/86 H Pulse Oximetry 98 07/22/19 14:07 07/22/19 14:11 07/22/19 14:14 Temperature Pulse Rate 78 76 Respiratory Rate 16 Blood Pressure Pulse Oximetry 98 07/22/19 14:18 07/22/19 15:47 07/22/19 16:00 Temperature 36.8 C Pulse Rate 76 73 73 Respiratory Rate 16 20 Blood Pressure 117/64 Pulse Oximetry 95 07/22/19 18:02 07/22/19 19:49 07/22/19 20:00 Temperature 36.6 C Pulse Rate 76 76 85 Respiratory Rate 20 Blood Pressure 145/90 H Pulse Oximetry 94 07/22/19 20:35 07/22/19 20:43 07/22/19 21:39 Temperature Pulse Rate 72 74 78 Respiratory Rate 1
[2019-07-23 12:02] LABS: Glucose Point of Care 113 (65-105)
[2019-07-23 17:20] LABS: Glucose Point of Care 103 (65-105)
--- NOTE | 2019-07-23 17:43 | PM.IMPN ---
Progress Note: A&P Assessment and Plan (1) Atrial flutter with rapid ventricular response: Code(s): I48.92 - Unspecified atrial flutter Status: Acute Assessment and Plan: . The patient was cardioverted 07/19 and is now in sinus rhythm. The patient is on oral sotalol and Xarelto(15 mg with est GFR<50) . Sotalol dose was decreased with increasing QT and with her renal function 07/21 and discontinued today with further lengthening of Qt Tsh normal too. (2) CHF (congestive heart failure): Code(s): I50.9 - Heart failure, unspecified Status: Acute Assessment and Plan: echo EF 35-40%. With enlarged left atrium.. Now on SHAHEEN-inhibitor, , and received diuretic 07/21 and repeat chest xray clear. Cardiology d/c beta snehal with wheezing. It had subsided today. ? low dose coreg (3) Community acquired pneumonia: Code(s): J18.9 - Pneumonia, unspecified organism Status: Acute Assessment and Plan: fourth hand who felt that the patient should be treated for community-acquired pneumonia and was started on Rocephin and azithromycin But x-ray findings are probably more compatible with heart failure especially in light of the fact she has had no fever and no significant cough. With normal white cell count. Repeat chest x-ray 07/21 showed clearing of the infiltrates which suggests fluid. Blood culture so far negative. Azithromycin discontinued with increasing QT interval and has had 3 doses of ceftriaxone so discontinued that also Xopenex for bronchospasm Diagnosis of pneumonia is ruled out (4) Suspected COVID-19 virus infection: Code(s): R68.89 - Other general symptoms and signs Status: Acute Assessment and Plan: Patient has been tested and is negative. Influenza is also negative. CRP is slightly elevated. And the lactate dehydrogenase is negative. (5) Hyperlipidemia: Code(s): E78.5 - Hyperlipidemia, unspecified Status: Chronic Assessment and Plan: Continue with simvastatin. (6) Gout: Code(s): M10.9 - Gout, unspecified Status: Chronic Assessment and Plan: Continue with allopurinol. (7) CKD (chronic kidney disease): Qualifiers: Chronic kidney disease stage: unspecified stage Qualified Code(s): N18.9 - Chronic kidney disease, unspecified Code(s): N18.9 - Chronic kidney disease, unspecified Status: Acute Assessment and Plan: Patient's creatinine was up to 3.1 07/21 and back to 2.6 today with baseline thought to be about 2... . Urine benign. renal sonogram no obstruction. CHECK BMP DAILY (8) Hypertension: Code(s): I10 - Essential (primary) hypertension Status: Acute Assessment and Plan: Patient's blood pressure is good today on SHAHEEN-inhibitor . . (9) Diabetes mellitus: Code(s): E11.9 - Type 2 diabetes mellitus without complications Status: Acute Assessment and Plan: Accu-Cheks AC and HS [id number] 5.7 (10) Anemia: Code(s): D64.9 - Anemia, unspecified Status: Acute Assessment and Plan: Probable anemia of chronic disease but hemoglobin dropped more overnight after admission to 8.7 which may have been lab error because repeat today back to 11.5 similar to when she was on admission with normal iron studies and B12 at 398 Subjective Date/time seen: 07/23/19 17:43 Interval history: Date of visit 07/22. 64-year-old hypertensive type 2 diabetic with chronic renal failure admitted with palpitations and found to be in atrial flutter. She was electrical cardioverted and placed on sotalol and remains in sinus rhythm at present time. No complaints fever chills. Some some cough and wheezing 07/21 but no chills and no further palpitations or chest discomfort.. Slept better with no wheezing now Exam Narrative: Exam Narrative: Blood pressure 140/80 pulse 70 saturating 98% on room air afebrile Lungs are clear with no wheezes today CV regu
[2019-07-23] MEDS: RIVAROXABAN 15 MG TABLET PO (17:47)
[2019-07-23 20:41] LABS: Glucose Point of Care 125 (65-105)
[2019-07-24] VITALS (18 sets, daily range): BP systolic 148–173; BP diastolic 74–96; PULSE 76–84; RESP 20–24; TEMP 36.4–36.8; O2SAT 98–100
[2019-07-24 04:58] LABS: Blood Urea Nitrogen 34 mg/dL (7-17); Calcium 8.9 mg/dL (8.4-10.2); Carbon Dioxide 28 mmol/L (22-30); Chloride 108 mmol/L (98-107); Estimated CRCL calculation 29 ml/min; Estimated Glomerular Filt Rate 29; Glucose 90 mg/dL (65-105); Potassium 3.7 mmol/L (3.4-5.0); Sodium 140 mmol/L (137-145)
[2019-07-24] MEDS: GUAIFENESIN/DEXTROMETHORPHAN 10 ML UDC PO ×2 (05:56→22:06)
--- NOTE | 2019-07-24 07:30 | ECG_ITS ---
Measurements Intervals [place] Rate: 84 P: 77 CT: 121 QRS: 72 QRSD: 92 T: 75 QT: 411 QTc: 487 Interpretive Statements SINUS RHYTHM RSR' IN V1 OR V2, CONSIDER RIGHT VENTRICULAR HYPERTROPHY OR RIGHT VCD BORDERLINE T WAVE ABNORMALITY- LATERAL LEADS BORDERLINE ECG Electronically Signed On 07-24-2019 10:40:26 CDT by Salty Mari D.O.
[2019-07-24 08:44] LABS: Glucose Point of Care 90 (65-105)
[2019-07-24] MEDS: ramipriL 5 MG CAPSULE PO (08:59)
[2019-07-24] MEDS: SIMVASTATIN 20 MG TABLET 40 MG PO (08:59)
[2019-07-24] MEDS: allopurinoL 50 MG TABLET PO (08:59)
[2019-07-24 10:34] LABS: Basophils Percent Auto 0.3 % (0.2-1.2); Eosinophils Absolute Auto 0.1 K/mm3 (0-0.3); Eosinophils Percent Auto 1.8 % (0-4.4); Hemoglobin 11.6 g/dL (12.0-15.0); Immature Granulocyte Absolute 0.02 K/mm3 (0.00-0.031); Immature Granulocyte Percent A 0.3 % (0-0.5); Lymphocytes Absolute Auto 1.21 K/mm3 (0.9-3.2); Lymphocytes Percent Auto 20.2 % (18.3-44.2); Mean Corpuscular HGB Conc 31.4 g/dl (32-36); Mean Corpuscular Volume 92.5 fl (80-100); Mean Platelet Volume 11.3 fl (7.4-10.4); Monocytes Absolute Auto 0.4 K/mm3 (0.1-0.6); Monocytes Percent Auto 7.3 % (2.6-8.5); Neutrophils Absolute Auto 4.2 K/mm3 (1.3-6.7); Neutrophils Percent Auto 70.1 % (45.5-73.1); Platelet Count Result 239 k/mm3 (150-375); Red Cell Distribution Width 15.6 % (11.5-14.5)
--- NOTE | 2019-07-24 11:06 | PM.PNCARD ---
Progress Note: A&P Assessment and Plan (1) Hypertension: Code(s): I10 - Essential (primary) hypertension Status: Acute Assessment and Plan: Above goal (2) Atrial flutter with rapid ventricular response: Code(s): I48.92 - Unspecified atrial flutter Status: Acute Assessment and Plan: QTC is better with discontinuation of sotalol. Continue anticoagulation (3) CHF (congestive heart failure): Code(s): I50.9 - Heart failure, unspecified Status: Acute Assessment and Plan: continue ramipril. will try low-dose carvedilol to see if she tolerates. 3.125 mg p.o. b.i.d. (4) Black stools: Code(s): K92.1 - Melena Status: Acute Assessment and Plan: check a CBC as well as stool guaiac. May need GI consultation. Continue Xarelto for now pending these results Additional Plan Will conduct an ischemia evaluation as an outpatient because of LV systolic dysfunction Subjective Date/time seen: 07/24/19 11:06 Interval history: Follow-up visit in 64-year-old lady with atrial flutter of unknown chronicity Patient was cardioverted electrically to sinus rhythm and placed on treatment with sotalol and Xarelto. She has also been started on ramipril as echocardiogram demonstrated modest LV systolic dysfunction Date is service 07/24/2019: she is feeling okay. She denies any chest pain, shortness of breath. QTC is better. Unfortunately she is describing black stools at this point. Review of Systems Constitutional: Constitutional: Reports no additional constitutional complaints Eyes: Eyes: Reports no additional eye complaints ENT: Reports system reviewed and no additional complaints, except as documented Cardiovascular: Cardiovascular: Reports as per HPI Respiratory: Respiratory: Reports cough (Productive of yellow sputum) Gastrointestinal: Gastrointestinal: Reports melena and Reports change in stool character Musculoskeletal: Musculoskeletal: Reports no additional musculoskeletal complaints Neurologic: Reports system reviewed and no additional complaints, except as documented Endocrine: Endocrine: Reports no additional endocrine complaints Hematologic/Lymphatic: Hematologic/Lymphatic: Denies easy bleeding Allergic/Immunologic: Allergic/Immunologic: Reports no additional allergic/immunologic complaints Exam Const: General: comfortable and no acute distress Other: Overweight black female comfortable cooperative in no distress of any sort HENMT: Mouth: Yes moist mucous membranes Eyes: Sclera: sclerae normal Pupils: Equal, round and reactive pupils present Neck: Neck: supple and no JVD Thyroid: thyroid normal Other: No audible carotid bruits Resp: Effort & Inspection: normal respiratory effort Auscultation: clear to auscultation bilaterally Other: No audible wheezing at this time Cardio: Rate: regular rate and tachycardic Rhythm: regular rhythm Other: No audible murmur or gallop PMI is difficult to palpate GI: Auscultation: normal bowel sounds Skin: General skin exam: normal color Neuro: Cranial nerves: Yes Equal, round and reactive pupils present Cognition (Neuro): normal cognition Extrem: General: normal to inspection Objective Data Vital Signs Vital Signs: Vital Signs - 24 hr 07/23/19 12:00 07/23/19 14:00 07/23/19 16:00 Temperature 36.1 C L 36.6 C Pulse Rate 71 78 82 Respiratory Rate 18 16 Blood Pressure 143/80 H 134/73 Pulse Oximetry 98 100 07/23/19 19:24 07/23/19 19:40 07/23/19 19:56 Temperature 36.7 C Pulse Rate 84 79 Respiratory Rate 20 Blood Pressure 157/80 H Pulse Oximetry 99 97 07/23/19 21:52 07/23/19 23:35 07/23/19 23:44 Temperature 36.7 C Pulse Rate 75 75 77 Respiratory Rate 20 Blood Pressure 165/80 H Pulse Oximetry 97 07/24/19 02:00 07/24/19 04:00 07/24/19 05:52 Temperature 36.6 C Pulse Rate 79 79 76 Respiratory Rate 22 H Blood Pressure 173/86 H Pulse Ox
[2019-07-24 12:08] LABS: Glucose Point of Care 83 (65-105)
[2019-07-24] MEDS: carvediloL 3.125 MG TABLET PO ×2 (13:03→20:48)
[2019-07-24 13:32] LABS: IFOB Positive Control Positive; Immunochemical Fecal Occult Bl Positive (N)
--- NOTE | 2019-07-24 14:57 | PM.IMPN ---
Progress Note: A&P Assessment and Plan (1) Atrial flutter with rapid ventricular response: Code(s): I48.92 - Unspecified atrial flutter Status: Acute Assessment and Plan: [id number]. The patient with AFib and was successfully cardioverted 07/19. She was on Sotalol but stopped due to prolonged QT. She is maintaining NSR. QTc 487 today. She is also on Xarelto (15 mg with est GFR<50). TSH normal. Echo noted. Cardiology following. (2) CHF (congestive heart failure): Code(s): I50.9 - Heart failure, unspecified Status: Acute Assessment and Plan: Echo EF 35-40% with enlarged left atrium. Was on SHAHEEN-inhibitor on admission and changed to Ramapril. Not able to tolerate betablocker due to wheezing. Repeat CXR 07/21 clearing. Cardiology following and appreciate their input. Add hydralazine. (3) Anemia: Code(s): D64.9 - Anemia, unspecified Status: Acute Assessment and Plan: Hgb slightly low but stable in the 10-11 range. Hgb 8.7 once but probably lab error. Probable anemia of chronic disease related to her renal disease. Patient with normal iron studies except sat is low at 18% with low normal ferritin at 40. Pateitn complaining of dark stools and chronic diarrhea. Stool guaiac positive today. Will hold Xarelto and order GI consult. Monitor HH. (4) CKD (chronic kidney disease): Qualifiers: Chronic kidney disease stage: unspecified stage Qualified Code(s): N18.9 - Chronic kidney disease, unspecified Code(s): N18.9 - Chronic kidney disease, unspecified Status: Acute Assessment and Plan: Patient's creatinine was up to 3.1 07/21 and back to 2.1 today with baseline thought to be about 2. Urine benign. Renal sonogram showing no obstruction. Will continue to monitor renal function. (5) Hypertension: Code(s): I10 - Essential (primary) hypertension Status: Acute Assessment and Plan: BP reviewed on 07/24/19. Patient's blood pressure is elevated at times but with a wide range. Currently on Ramapril only. Betablockers can cause whezing. Has CKD so don't want to push the Ramapril dose. Will add low dose hydralazine; add Nitrates if still elevated BP. (6) Diabetes mellitus: Code(s): E11.9 - Type 2 diabetes mellitus without complications Status: Acute Assessment and Plan: A1c 5.7. Glucose reviewed on 07/24/19. Glucose well controlled. Okay to back off on Accu-Cheks. (7) Gout: Code(s): M10.9 - Gout, unspecified Status: Chronic Assessment and Plan: Stable. Continue with allopurinol. (8) Hyperlipidemia: Code(s): E78.5 - Hyperlipidemia, unspecified Status: Chronic Assessment and Plan: AST peaked at 56 but better yesterday at 37. ALT peaked at 51 before trending down. Continue with simvastatin. (9) Suspected COVID-19 virus infection: Code(s): R68.89 - Other general symptoms and signs Status: Acute Assessment and Plan: COVID-19 is negative. Influenza is also negative. (10) Community acquired pneumonia: Code(s): J18.9 - Pneumonia, unspecified organism Status: Acute Assessment and Plan: Ticket Attendant felt that the patient should be treated for CAP and patient was started on Rocephin and azithromycin. However. CXR findings are more compatible with heart failure especially in light of the fact she has had no fever and no significant cough with normal white cell count. Repeat chest x-ray 07/21 showed clearing of the infiltrates which suggests fluid. Blood culture NGTD. Azithromycin discontinued with increasing QT interval and Rocephin stopped after 3 doses. Diagnosis of pneumonia is ruled out Subjective Date/time seen: 07/24/19 14:57 Interval history: Date of visit 07/23. 64yo female with HTN, DM and CKD here with atrial flutter. Assuming care. Chart reviewed. She was electrical cardiovert
[2019-07-24 16:26] LABS: Glucose Point of Care 100 (65-105)
[2019-07-24] MEDS: RIVAROXABAN 15 MG TABLET PO (17:15)
[2019-07-24 20:35] LABS: Glucose Point of Care 102 (65-105)
[2019-07-24] MEDS: MELATONIN 3 MG TABLET PO (20:48)
[2019-07-24] MEDS: hydrALAZINE 10 MG TABLET PO (22:06)
[2019-07-25] VITALS (17 sets, daily range): BP systolic 124–152; BP diastolic 69–99; PULSE 76–131; RESP 18–24; TEMP 36.2–36.8; O2SAT 97–100
[2019-07-25] MEDS: hydrALAZINE 10 MG TABLET PO ×3 (05:45→20:02)
[2019-07-25 05:50] LABS: Glucose Point of Care 97 (65-105)
--- NOTE | 2019-07-25 06:07 | ECG_ITS ---
Measurements Intervals [place] Rate: 124 P: [place]: 0 QRS: 65 QRSD: 89 T: 55 QT: 329 QTc: 474 Interpretive Statements ATRIAL FLUTTER/TACHYCARDIA WITH RAPID VENTRICULAR RESPONSE BORDERLINE T WAVE ABNORMALITY- LATERAL LEADS ABNORMAL ECG Electronically Signed On 07-25-2019 9:55:17 CDT by Salty Mari D.O.
[2019-07-25] MEDS: METOPROLOL TARTRATE INJ 5 MG/5 ML VIAL IV PUSH (06:31)
[2019-07-25] MEDS: carvediloL 3.125 MG TABLET PO ×2 (08:17→20:02)
[2019-07-25] MEDS: ramipriL 5 MG CAPSULE PO (08:17)
[2019-07-25] MEDS: allopurinoL 50 MG TABLET PO (08:17)
[2019-07-25] MEDS: SIMVASTATIN 20 MG TABLET 40 MG PO (08:17)
--- NOTE | 2019-07-25 09:17 | ECG_ITS ---
Measurements Intervals [place] Rate: 120 P: [place]: 0 QRS: 54 QRSD: 89 T: -76 QT: 400 QTc: 565 Interpretive Statements ATRIAL FLUTTER/TACHYCARDIA WITH RAPID VENTRICULAR RESPONSE ABNORMAL ECG Electronically Signed On 07-25-2019 9:55:38 CDT by Salty Mari D.O.
--- NOTE | 2019-07-25 09:31 | PM.PNCARD ---
Progress Note: A&P Additional Plan 64-year-old lady with: Symptomatic atrial flutter. The after cardioversion on Tuesday and treatment with sotalol which did maintain sinus rhythm she is recurred back into atrial flutter within 24 hours of discontinuing sotalol because of QT prolongation. Unfortunately the patient cannot be discharged in this situation. Will start amiodarone intravenously today in hopes that it will restore sinus rhythm if not will likely have to repeat a DC cardioversion again during this hospitalization. The patient has some cramping abdominal discomfort and heme-positive stools. Hemoglobin is stable I am not sure that she is actually GI bleeding significantly. Roberto Yoo MD [facility] Subjective Date/time seen: Date of service: 07/25/19 09:31 Interval history: Follow-up visit for 64-year-old lady with paroxysmal atrial flutter, [id number] left ventricular systolic dysfunction Patient has mild mid abdominal cramping this morning no other symptoms. She is aware however of tachycardia. Telemetry demonstrates patient converted from sinus back to atrial flutter with heart rate of 115-120 earlier this morning. As detailed in yesterday's note sotalol was discontinued for fear of QT prolongation. Discussion with the patient that she is going to require an alternative antiarrhythmic because of recurrent atrial flutter about 24 hours after taking her off of her medications. Because of her LV systolic dysfunction am going to start amiodarone intravenously today Exam Const: General: comfortable and no acute distress HENMT: Mouth: Yes moist mucous membranes Eyes: Sclera: sclerae normal Pupils: Equal, round and reactive pupils present Neck: Neck: supple and no JVD Thyroid: thyroid normal Resp: Effort & Inspection: normal respiratory effort Auscultation: clear to auscultation bilaterally Cardio: Rhythm: abnormal rhythm irregularly irregular GI: Auscultation: normal bowel sounds Skin: General skin exam: normal color Neuro: Cognition (Neuro): normal cognition Extrem: General: normal to inspection Objective Data Vital Signs Vital Signs: Vital Signs - 24 hr 07/24/19 10:00 07/24/19 11:34 07/24/19 11:35 Temperature 36.8 C 36.8 C Pulse Rate 78 77 77 Respiratory Rate 20 20 Blood Pressure 155/82 H 155/82 H Pulse Oximetry 100 100 07/24/19 12:00 07/24/19 13:03 07/24/19 14:00 Temperature Pulse Rate 81 82 82 Respiratory Rate Blood Pressure Pulse Oximetry 07/24/19 15:49 07/24/19 16:00 07/24/19 18:37 Temperature 36.7 C Pulse Rate 80 82 84 Respiratory Rate 24 H Blood Pressure 151/74 H Pulse Oximetry 99 07/24/19 20:00 07/24/19 20:48 07/24/19 22:00 Temperature 36.4 C Pulse Rate 82 83 84 Respiratory Rate 20 Blood Pressure 148/82 H Pulse Oximetry 99 07/24/19 23:32 07/25/19 00:00 07/25/19 02:00 Temperature 36.7 C Pulse Rate 82 76 80 Respiratory Rate 20 Blood Pressure 157/81 H Pulse Oximetry 98 07/25/19 04:00 07/25/19 05:55 07/25/19 06:30 Temperature 36.7 C Pulse Rate 79 79 124 H Respiratory Rate 20 Blood Pressure 146/69 H 152/99 H Pulse Oximetry 97 07/25/19 06:31 07/25/19 07:55 07/25/19 08:00 Temperature 36.2 C L Pulse Rate 124 H 115 H 122 H Respiratory Rate 20 Blood Pressure 151/84 H Pulse Oximetry 100 07/25/19 08:17 Temperature Pulse Rate 122 H Respiratory Rate Blood Pressure Pulse Oximetry Intake/Output Intake/Output: Intake & Output 07/22/19 07/23/19 07/24/19 07/25/19 23:59 23:59 23:59 23:59 Intake Total 1941 799 1116 500 Output Total 0 800 Balance 5951 039 3946 -300 Meds/Results Medications: Active Medications Generic Name Dose Route Start Last Admin Trade Name Freq PRN Reason Stop Dose Admin Acetaminophen 650 mg 07/20/19 12:39 Tylenol Tablet PO Q4H PRN Mild Pain (1-3) or Fever Allopurinol 50 mg 07/21/19 09:00 07/25/19 08:17 Zyloprim PO
[2019-07-25] MEDS: PEG (High)/E-LYTE SOLN 4,000 ML BTL 4000 ML PO (11:11)
[2019-07-25] MEDS: AMIODARONE 150 MG/D5W 100 ML 150 MG/100 ML BAG 600 MG IV CONT (11:12)
--- NOTE | 2019-07-25 11:12 | WPDGICN ---
Assessment and Plan Assessment and plan (1) Occult blood in stools: Code(s): R19.5 - Other fecal abnormalities Status: Acute Assessment and Plan: Patient reports visible blood in her stool this week. She also describes blackish color to her stool. She notes abdominal cramping associated with bowel habits. Most symptoms have occurred this week after being started on Xarelto anticoagulation. Plan to hold Xarelto in proceed with colonoscopy. She may require an EGD because of description melenic stools. This will be considered subsequently. Continue to monitor hemoglobin in the antrum. (2) Anemia: Code(s): D64.9 - Anemia, unspecified Status: Acute Assessment and Plan: Mild decline in hemoglobin noted. Suggesting she may not has had as much blood loss as described. Plan is to evaluate more thoroughly with colonoscopy. Continue monitor hemoglobin. Hold anticoagulation until this can be accomplished. (3) Atrial flutter with rapid ventricular response: Code(s): I48.92 - Unspecified atrial flutter Status: Acute (4) Diabetes mellitus: Code(s): E11.9 - Type 2 diabetes mellitus without complications Status: Acute (5) Gout: Code(s): M10.9 - Gout, unspecified Status: Chronic (6) Hypertension: Code(s): I10 - Essential (primary) hypertension Status: Acute GI Consult Note Consult date/time: 07/25/19 11:12 HPI: Sofia Blevins is a 64 year old female seen in evaluation at the request of the hospitalist service. Patient admitted the hospital 07/20/2019 with symptomatic atrial flutter. She was cardioverted period and placed on Xarelto anticoagulation. Patient did well however over the last 2-3 days at begun to pass black stools according to the patient. She reports blood admixed with the stool. She notes occasional abdominal cramping. For this reason I have been consulted and Xarelto has been held. Patient denies prior history of GI bleeding. The blood is primarily been noted during last several days. In the past patient has been treated for diabetes hypertension and congestive heart failure. She has also been treated for gout. Review of Systems Review of Systems: All systems reviewed & are unremarkable except as noted in HPI and below PMFSH Past Medical History Medical History CKD (chronic kidney disease) Diabetes mellitus Fractured tibia and fibula With plates and screws Gout Hyperlipidemia Hypertension Surgical History Surgical History History of open reduction and internal fixation (ORIF) procedure Right tibia and fibula with plates and screws Family History Family History Mother Diabetes mellitus Hypertension Father Emphysema lung Social History Social History Social History: The patient is single and she has 2 children. Her mother jaylene Black is a durable power employment law attorney for healthcare. The patient desires to be a full code. 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 Lifelong nonsmoker no alcohol no marijuana no illicit drugs. Smoking status: Never smoker Second hand tobacco smoke exposure: Yes Alcohol intake: never Substance use: never Living arrangements: with family Occupation/Education: occupation Additional occupation/education comments: [employer] Gender identity (if verbalized by the patient): Female Spiritual care concerns: No Agree to blood products: Yes Meds Home Medications and Allergies Home Medications Medication Instructions Recorded Confirmed Type allopurinol 50 mg PO DAILY 07/20/19 07/20/19 History lisinopril 20 mg PO DAILY 07/20/19 07/20/19 History simvastatin 40 mg PO DAILY 07/20/19 07/20/19 History sitagliptin [Januvia] 25 mg PO DAILY 07/20/19 07/20/19 Histo
[2019-07-25] MEDS: AMIODARONE 360 MG/D5W 200 ML 360 MG/200 ML BAG 33.3 MG IV CONT (11:15)
[2019-07-25 11:32] LABS: Glucose Point of Care 80 (65-105)
--- NOTE | 2019-07-25 16:54 | PM.IMPN ---
Progress Note: A&P Assessment and Plan (1) Atrial flutter with rapid ventricular response: Code(s): I48.92 - Unspecified atrial flutter Status: Acute Assessment and Plan: [id number] 4. The patient with AFib and was successfully cardioverted 07/19. She was on Sotalol but stopped due to prolonged QT. Patient back in AFlutter this morning. Xarelto on hold due to anemia and guaiac positive stools. TSH normal. Echo noted. Amio drip started. Cardiology following and appreciate their input. (2) CHF (congestive heart failure): Code(s): I50.9 - Heart failure, unspecified Status: Acute Assessment and Plan: Echo EF 35-40% with enlarged left atrium. Was on SHAHEEN-inhibitor on admission and changed to Ramapril. Taken off betablocker due to wheezing but resumed yesterday. Repeat CXR 07/21 clearing. Hydralazine added for better BP control. Cardiology following and appreciate their input. Worsening edema related to the CHF from the RVR. May need Lasix but hold for now. (3) Anemia: Code(s): D64.9 - Anemia, unspecified Status: Acute Assessment and Plan: Hgb slightly low but stable in the 10-11 range. Hgb 8.7 once but probably lab error. Probable anemia of chronic disease related to her renal disease. Patient with normal iron studies except sat is low at 18% with low normal ferritin at 40. Patient complaining of dark stools and chronic diarrhea. Stool guaiac positive. Xarelto held with plans for colonoscopy in the morning. (4) CKD (chronic kidney disease): Qualifiers: Chronic kidney disease stage: unspecified stage Qualified Code(s): N18.9 - Chronic kidney disease, unspecified Code(s): N18.9 - Chronic kidney disease, unspecified Status: Acute Assessment and Plan: Patient's creatinine was up to 3.1 07/21 and back to 2.1 yesterday with baseline thought to be about 2. Urine benign. Renal sonogram showing no obstruction. Repeat labs in the morning. (5) Hypertension: Code(s): I10 - Essential (primary) hypertension Status: Acute Assessment and Plan: BP reviewed on 07/25/19. Blood pressure elevated mostly with SBP in the 140-150 range. Currently on Ramapril, Coreg and Hydralazine. Betablockers was causing wheezing but appears to be tolerating the Coreg. Has CKD so don't want to push the Ramapril dose. Continue the same; add Nitrates if still elevated BP. (6) Diabetes mellitus: Code(s): E11.9 - Type 2 diabetes mellitus without complications Status: Acute Assessment and Plan: A1c 5.7. Glucose reviewed on 07/25/19. Glucose well controlled. Continue sliding scale. Decrease frequency of FSBS. (7) Gout: Code(s): M10.9 - Gout, unspecified Status: Chronic Assessment and Plan: Stable. Continue with allopurinol. (8) Hyperlipidemia: Code(s): E78.5 - Hyperlipidemia, unspecified Status: Chronic Assessment and Plan: AST peaked at 56 but better yesterday at 37. ALT peaked at 51 before trending down. Continue with simvastatin. Check Lipid panel (9) Suspected COVID-19 virus infection: Code(s): R68.89 - Other general symptoms and signs Status: Acute Assessment and Plan: COVID-19 is negative. Influenza is also negative. (10) Community acquired pneumonia: Code(s): J18.9 - Pneumonia, unspecified organism Status: Acute Assessment and Plan: Prep Room Supervisor felt that the patient should be treated for CAP and patient was started on Rocephin and azithromycin. However. CXR findings are more compatible with heart failure especially in light of the fact she has had no fever and no significant cough with normal white cell count. Repeat chest x-ray 07/21 showed clearing of the infiltrates which suggests fluid. Blood culture NGTD. Azithromycin discontinued with increasing QT interval and Rocephin stopped after 3 doses.
[2019-07-25 17:02] LABS: Glucose Point of Care 83 (65-105)
[2019-07-25] MEDS: AMIODARONE 360 MG/D5W 200 ML 360 MG/200 ML BAG 16.7 MG IV CONT (17:27)
--- NOTE | 2019-07-25 18:02 | P.PNAN_ITS ---
Anes - Eval Pre Procedure Procedure: Operation Date: 07/20/19 15:00 Proposed Procedures p Electrical Cardioversion - Roberto Yoo MD Operation Date: 07/26/19 09:00 Proposed Procedures p Esophagogastroduodenoscopy & Colonoscopy - Conner Dockery MD Date/Time: 07/25/19 18:02 Pre Op Diagnosis: Atrial fibrillation w rapid ventricular response Patient Data Age: 64 Gender: F Height: 5 ft 2 in Weight: 105 kg Last Vital Signs Temp 98.3 F 07/25/19 16:00 Pulse 123 H 07/25/19 16:00 Resp 22 H 07/25/19 16:00 BP 129/96 H 07/25/19 16:00 Pulse Ox 100 07/25/19 16:00 Allergies Allergy/AdvReac Type Severity Reaction Status Date / Time No Known Allergies Allergy Verified 07/20/19 09:57 Home Medications Medication Instructions Recorded Confirmed Type allopurinol 50 mg PO DAILY 07/20/19 07/20/19 History lisinopril 20 mg PO DAILY 07/20/19 07/20/19 History simvastatin 40 mg PO DAILY 07/20/19 07/20/19 History sitagliptin [Januvia] 25 mg PO DAILY 07/20/19 07/20/19 History Laboratory Tests 07/24/19 07/25/19 07/25/19 20:31 05:45 11:24 POC Capillary Glucose 102 mg/dl mg/dl 97 mg/dl mg/dl 80 mg/dl mg/dl (65-105) (65-105) (65-105) 07/25/19 16:48 POC Capillary Glucose 83 mg/dl mg/dl (65-105) Patient hx anesthesia problems: none Family hx anesthesia problems: none [facility] [place] Past Medical History Medical History (Updated 07/25/19 @ 18:04 by New Candelario CRNA) Anemia Atrial flutter with rapid ventricular response CHF (congestive heart failure) CKD (chronic kidney disease) Community acquired pneumonia Diabetes mellitus Fractured tibia and fibula With plates and screws Gout History of cardioversion Hyperlipidemia Hypertension Suspected COVID-19 virus infection Surgical History Surgical History History of open reduction and internal fixation (ORIF) procedure Right tibia and fibula with plates and screws Family History Family History Mother Diabetes mellitus Hypertension Father Emphysema lung Social History Social History Social History: The patient is single and she has 2 children. Her mother jaylene Black is a durable power assistant prosecuting attorney for healthcare. The patient desires to be a full code. 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 Lifelong nonsmoker no alcohol no marijuana no illicit drugs. Smoking status: Never smoker Second hand tobacco smoke exposure: Yes Alcohol intake: never Substance use: never Living arrangements: with family Occupation/Education: occupation Additional occupation/education comments: [employer] floor cashier Gender identity (if verbalized by the patient): Female Spiritual care concerns: No Agree to blood products: Yes Exam Day of Procedure 07/25/19 18:02
[2019-07-25] MEDS: MELATONIN 3 MG TABLET PO (20:05)
[2019-07-25 21:21] LABS: Glucose Point of Care 85 (65-105)
[2019-07-26] VITALS (20 sets, daily range): BP systolic 104–152; BP diastolic 57–99; PULSE 113–137; RESP 18–30; TEMP 36.1–36.9; O2SAT 98–100
[2019-07-26 00:59] LABS: Glucose Point of Care 87 (65-105)
[2019-07-26] MEDS: ACETAMINOPHEN 325 MG TABLET 650 MG PO (01:36)
[2019-07-26 04:40] LABS: Hematocrit 33.4 % (37.0-47.0); Hemoglobin 10.6 g/dL (12.0-15.0); Mean Corpuscular HGB Conc 31.7 g/dl (32-36); Mean Corpuscular Hemoglobin 28.7 pg (26-34); Mean Corpuscular Volume 90.5 fl (80-100); Mean Platelet Volume 11.4 fl (7.4-10.4); Platelet Count Result 239 k/mm3 (150-375); Red Blood Count 3.69 M/mm3 (4.2-5.4); Red Cell Distribution Width 15.2 % (11.5-14.5); White Blood Count 4.7 K/mm3 (4.5-10.0)
[2019-07-26 05:04] LABS: Alanine Aminotransferase 33 U/L (4-35); Alkaline Phosphatase 80 U/L (38-126); Aspartate Amino Transferase 27 U/L (14-36); Bilirubin,Total 0.3 mg/dL (0.2-1.3); Blood Urea Nitrogen 19 mg/dL (7-17); Calcium 8.5 mg/dL (8.4-10.2); Carbon Dioxide 28 mmol/L (22-30); Chloride 106 mmol/L (98-107); Cholesterol 113 mg/dL (0-200); Estimated CRCL calculation 40 ml/min; Estimated Glomerular Filt Rate 43; Glucose 83 mg/dL (65-105); HDL Direct 55 mg/dL; Magnesium 1.6 mg/dL (1.6-2.3); Potassium 3.4 mmol/L (3.4-5.0); Sodium 137 mmol/L (137-145); Triglycerides 74 mg/dL (<150)
[2019-07-26] MEDS: AMIODARONE 360 MG/D5W 200 ML 360 MG/200 ML BAG 16.7 MG IV CONT ×2 (05:26→17:11)
[2019-07-26] MEDS: hydrALAZINE 10 MG TABLET PO ×3 (05:27→20:29)
[2019-07-26 06:04] LABS: Glucose Point of Care 77 (65-105)
[2019-07-26 07:03] LABS: LDL Cholesterol Direct < 30 mg/dL
[2019-07-26 07:10] LABS: Glucose Point of Care 92 (65-105)
[2019-07-26 07:40] LABS: Glucose Point of Care 91 (65-105)
[2019-07-26] MEDS: LACTATED RINGERS 1,000 ML 150 ML IV CONT (07:55)
--- NOTE | 2019-07-26 08:15 | P.PNAN_ITS ---
Anes - Eval Final PreProcedure Day of Procedure 07/26/19 08:15 Patient weight: morbidly obese Heart: tachycardia Lungs: decreased breath sounds Airway: Mallampati scale class II Neurological: alert and oriented Last oral intake: >/= 8 hours ASA classification: III Emergent: no Anesthetic plan: proceed Anesthesia type and monitoring: general GIVS and standard monitoring Informed Consent: The patient's anesthetic plan and its attendant risks and be nefits were discussed with the patient/family/POA. Questions were solicited and answers provided to the satisfaction of the patient/family/POA.
[2019-07-26] MEDS: BENZOCAINE (*SP) 60 ML SPRAY CAN (HURRICAINE) 1 SPRAY MUCOUS MEM (09:01)
--- NOTE | 2019-07-26 09:34 | SUR.PHASEII ---
[id number] DR DELGADO CALLED REGARDING PATIENT'S HEART RATE. NO ORDER RECEIVED. Sourav MORRISSEY RN
[2019-07-26] MEDS: POTASSIUM CHLORIDE 20 MEQ PACKET (FOR LIQUID) 40 MEQ PO (10:11)
[2019-07-26] MEDS: carvediloL 3.125 MG TABLET PO ×2 (10:12→20:29)
[2019-07-26] MEDS: ramipriL 5 MG CAPSULE PO (10:13)
[2019-07-26] MEDS: allopurinoL 50 MG TABLET PO (10:13)
[2019-07-26] MEDS: MAGNESIUM SULF 2 GM/WATER 50ML 2 GM/50 ML BAG IVPB (10:13)
[2019-07-26] MEDS: SIMVASTATIN 20 MG TABLET 40 MG PO (10:13)
[2019-07-26 10:47] LABS: Glucose Point of Care 69 (65-105)
--- NOTE | 2019-07-26 13:21 | PM.PNCARD ---
Progress Note: A&P Assessment and Plan (1) Hypertension: Code(s): I10 - Essential (primary) hypertension Status: Acute Assessment and Plan: Above goal (2) Atrial flutter with rapid ventricular response: Code(s): I48.92 - Unspecified atrial flutter Status: Acute Assessment and Plan: On amiodarone. Unfortunately she reverted back into atrial flutter. Will keep her NPO after midnight for repeat cardioversion tomorrow then hopefully home. Continue anticoagulation. BMP and Mag tomorrow (3) CHF (congestive heart failure): Code(s): I50.9 - Heart failure, unspecified Status: Acute Assessment and Plan: continue ramipril. Continue carvedilol (4) Black stools: Code(s): K92.1 - Melena Status: Acute Assessment and Plan: Black stools were never formally seen but she did have guaiac-positive stools which are presumably related to her hemorrhoids. Will need to follow H&H as an outpatient Subjective Date/time seen: 07/26/19 13:21 Interval history: Follow-up visit for 64-year-old lady with paroxysmal atrial flutter, [id number] left ventricular systolic dysfunction Patient has mild mid abdominal cramping this morning no other symptoms. She is aware however of tachycardia. Telemetry demonstrates patient converted from sinus back to atrial flutter with heart rate of 115-120 earlier this morning. As detailed in yesterday's note sotalol was discontinued for fear of QT prolongation. Date of service 07/26/2019: She did undergo her EGD and colonoscopy. She was noted to have some hemorrhoids but otherwise no significant findings. No chest pain or shortness of breath. Unfortunately still in atrial flutter with rapid ventricular response. Review of Systems Constitutional: Constitutional: Reports no additional constitutional complaints Eyes: Eyes: Reports no additional eye complaints ENT: Reports system reviewed and no additional complaints, except as documented Cardiovascular: Cardiovascular: Reports as per HPI Respiratory: Respiratory: Reports cough (Productive of yellow sputum) Gastrointestinal: Gastrointestinal: Reports melena and Reports change in stool character Musculoskeletal: Musculoskeletal: Reports no additional musculoskeletal complaints Neurologic: Reports system reviewed and no additional complaints, except as documented Endocrine: Endocrine: Reports no additional endocrine complaints Hematologic/Lymphatic: Hematologic/Lymphatic: Denies easy bleeding Allergic/Immunologic: Allergic/Immunologic: Reports no additional allergic/immunologic complaints Exam Const: General: comfortable and no acute distress Other: Overweight black female comfortable cooperative in no distress of any sort HENMT: Mouth: Yes moist mucous membranes Eyes: Sclera: sclerae normal Pupils: Equal, round and reactive pupils present Neck: Neck: supple and no JVD Thyroid: thyroid normal Other: No audible carotid bruits Resp: Effort & Inspection: normal respiratory effort Auscultation: clear to auscultation bilaterally Other: No audible wheezing at this time Cardio: Rate: regular rate and tachycardic Rhythm: regular rhythm and abnormal rhythm regularly irregular Other: No audible murmur or gallop PMI is difficult to palpate GI: Auscultation: normal bowel sounds Skin: General skin exam: normal color Neuro: Cranial nerves: Yes Equal, round and reactive pupils present Cognition (Neuro): normal cognition Extrem: General: normal to inspection Psych: Appearance: grossly normal Objective Data Vital Signs Vital Signs: Vital Signs - 24 hr 07/25/19 14:00 07/25/19 16:00 07/25/19 18:00 Temperature 36.8 C Pulse Rate 131 H 123 H 122 H Respiratory Rate 22 H Blood Pressure 129/96 H Pulse Oximetry 100 07/25/19 20:00 07/25/19 20:02 07/25/19 22:00 Temperature 36.8 C Pulse Rate 125 H 116 H 119 H Respiratory Rate 18 Blood Pressure 124/82
--- NOTE | 2019-07-26 13:46 | PM.IMPN ---
Progress Note: A&P Assessment and Plan (1) Atrial flutter with rapid ventricular response: Code(s): I48.92 - Unspecified atrial flutter Status: Acute Assessment and Plan: [id number] 4. The patient with AFlutter and was successfully cardioverted 07/19. She was on Sotalol but stopped due to prolonged QT. Patient back in AFlutter yesterday morning. Xarelto on hold due to anemia and guaiac positive stools. TSH normal. Echo noted. Amio drip started 07/25/19. Cardiology following and appreciate their input. EGD and [place] showing no obvious source of bleeding so Xarelto resumed. Plan for repeat Cardioversion tomrrow. possible discharge tomorrow after/ (2) CHF (congestive heart failure): Code(s): I50.9 - Heart failure, unspecified Status: Acute Assessment and Plan: CXR 07/19 showing pulmonary edema and BNP 5K. Echo EF 35-40% with enlarged left atrium. Was on SHAHEEN-inhibitor on admission and changed to Ramapril. Taken off betablocker initially due to wheezing but resumed and tolerting this. Repeat CXR 07/21 clearing. Hydralazine added for better BP control. Cardiology following and appreciate their input. (3) Anemia: Code(s): D64.9 - Anemia, unspecified Status: Acute Assessment and Plan: Hgb slightly low but stable in the 10-11 range. Hgb 8.7 once but probably lab error. Probable anemia of chronic disease related to her renal disease. Patient with normal iron studies except sat is low at 18% with low normal ferritin at 40. Patient complaining of dark stools and chronic diarrhea. Stool guaiac positive. EGD normal and Rye showing internal hemorrhoids. Xarelto resumed. (4) CKD (chronic kidney disease): Qualifiers: Chronic kidney disease stage: unspecified stage Qualified Code(s): N18.9 - Chronic kidney disease, unspecified Code(s): N18.9 - Chronic kidney disease, unspecified Status: Acute Assessment and Plan: Patient's creatinine was up to 3.1 on 07/21 and back to 2.1 yesterday with baseline thought to be about 2. Urine benign. Renal sonogram showing no obstruction. Cr down to 1.5 today. Continue to follow. (5) Hypertension: Code(s): I10 - Essential (primary) hypertension Status: Acute Assessment and Plan: BP reviewed on 07/26/19. Blood pressure better controlled. Currently on Ramapril, Coreg and Hydralazine. Betablockers was causing wheezing but appears to be tolerating the Coreg. Has CKD so don't want to push the Ramapril dose. Continue the same; add Nitrates if still elevated BP. (6) Diabetes mellitus: Code(s): E11.9 - Type 2 diabetes mellitus without complications Status: Acute Assessment and Plan: A1c 5.7. Glucose reviewed on 07/26/19. Glucose well controlled. Continue sliding scale. (7) Gout: Code(s): M10.9 - Gout, unspecified Status: Chronic Assessment and Plan: Stable. Continue with allopurinol. (8) Hyperlipidemia: Code(s): E78.5 - Hyperlipidemia, unspecified Status: Chronic Assessment and Plan: AST peaked at 56 but better at 27 today. ALT peaked at 51 before normalizing. LDL<30 with HDL 55. Continue with simvastatin. (9) Suspected COVID-19 virus infection: Code(s): R68.89 - Other general symptoms and signs Status: Acute Assessment and Plan: COVID-19 is negative. Influenza is also negative. (10) Community acquired pneumonia: Code(s): J18.9 - Pneumonia, unspecified organism Status: Acute Assessment and Plan: Director felt that the patient should be treated for CAP and patient was started on Rocephin and azithromycin. However. CXR findings are more compatible with heart failure especially in light of the fact she has had no fever and no significant cough with normal white cell count. Repeat chest x-ray 07/21 showed clearing of the infiltrates which sugges
[2019-07-26] MEDS: RIVAROXABAN 15 MG TABLET PO (17:12)
[2019-07-26 17:15] LABS: Glucose Point of Care 90 (65-105)
[2019-07-26] MEDS: MELATONIN 3 MG TABLET PO (22:01)
[2019-07-27] VITALS (16 sets, daily range): BP systolic 120–176; BP diastolic 75–136; PULSE 79–137; RESP 16–20; TEMP 36.3–36.8; O2SAT 98–100
[2019-07-27] MEDS: GUAIFENESIN/DEXTROMETHORPHAN 10 ML UDC PO (04:07)
[2019-07-27 05:08] LABS: Blood Urea Nitrogen 25 mg/dL (7-17); Calcium 8.4 mg/dL (8.4-10.2); Carbon Dioxide 26 mmol/L (22-30); Chloride 107 mmol/L (98-107); Estimated CRCL calculation 31 ml/min; Estimated Glomerular Filt Rate 32; Glucose 92 mg/dL (65-105); Potassium 3.6 mmol/L (3.4-5.0); Sodium 138 mmol/L (137-145)
[2019-07-27] MEDS: AMIODARONE 360 MG/D5W 200 ML 360 MG/200 ML BAG 16.7 MG IV CONT (05:10)
[2019-07-27] MEDS: hydrALAZINE 10 MG TABLET PO ×2 (06:11→15:47)
--- NOTE | 2019-07-27 07:00 | ECG_ITS ---
Measurements Intervals [place] Rate: 80 P: 59 TX: 120 QRS: 56 QRSD: 85 T: 71 QT: 396 QTc: 458 Interpretive Statements SINUS RHYTHM POSSIBLE LEFT ATRIAL ENLARGEMENT NONSPECIFIC T-WAVE ABNORMALITY- LATERAL LEADS BORDERLINE ECG Electronically Signed On 07-27-2019 10:08:19 CDT by Salty Mari D.O.
[2019-07-27] MEDS: PROPOFOL IV EMULSION 200 MG/20 ML VIAL (09:05)
--- NOTE | 2019-07-27 09:09 | WPDGIPROGNO ---
Progress Note: A&P Additional Plan Patient alert and comfortable this morning. No additional bleeding reported. Physical exam exam reveals her to be alert. Abdomen is soft and nontender with no organomegaly. Labs reveal hemoglobin 10.6 stable. Impression 1. Lower GI/rectal bleeding. Likely from hemorrhoids identified colonoscopy. EGD was normal in unremarkable. At present seems okay to continue anticoagulation. Should she continue to bleed she may need hemorrhoid surgery. 2. Atrial fibrillation. Okay to continue anticoagulation. As hemoglobin has remained stable. However should she continue to have bleeding hemorrhoid surgery may be required as noted above Subjective Date/time seen: 07/27/19 09:09 Objective Data Vital Signs Vital Signs: Vital Signs - 24 hr 07/26/19 09:25 07/26/19 09:30 07/26/19 09:40 Temperature Pulse Rate 137 H 137 H 117 H Respiratory Rate 30 H 28 H 27 H Blood Pressure 104/57 L 115/83 127/96 H Pulse Oximetry 98 98 100 07/26/19 09:50 07/26/19 10:00 07/26/19 10:47 Temperature 36.2 C L Pulse Rate 116 H 114 H 118 H Respiratory Rate 25 H 20 Blood Pressure 130/79 143/99 H Pulse Oximetry 100 100 07/26/19 12:00 07/26/19 14:00 07/26/19 15:58 Temperature 36.3 C L 36.5 C Pulse Rate 127 H 120 H 119 H Respiratory Rate 20 20 Blood Pressure 119/76 139/78 Pulse Oximetry 100 100 07/26/19 16:00 07/26/19 17:54 07/26/19 19:52 Temperature 36.1 C L Pulse Rate 120 H 122 H 126 H Respiratory Rate 18 Blood Pressure 141/97 H Pulse Oximetry 100 07/26/19 20:00 07/26/19 20:29 07/26/19 22:00 Temperature Pulse Rate 122 H 122 H 120 H Respiratory Rate 18 Blood Pressure Pulse Oximetry 100 07/27/19 00:00 07/27/19 02:00 07/27/19 04:00 Temperature 36.6 C 36.3 C L Pulse Rate 121 H 114 H 120 H Respiratory Rate 16 18 Blood Pressure 161/96 H 120/88 Pulse Oximetry 100 98 07/27/19 06:00 07/27/19 08:00 Temperature Pulse Rate 124 H 137 H Respiratory Rate Blood Pressure Pulse Oximetry Intake/Output Intake/Output: Intake & Output 07/24/19 07/25/19 07/26/19 07/27/19 23:59 23:59 23:59 23:59 Intake Total 1560 600 880 200 Output Total 800 950 400 Balance 1560 -200 -70 -200 Meds/Results Medications: Active Medications Generic Name Dose Route Start Last Admin Trade Name Freq PRN Reason Stop Dose Admin Acetaminophen 650 mg 07/20/19 12:39 07/26/19 01:36 Tylenol Tablet PO 650 mg Q4H PRN Administration Mild Pain (1-3) or Fever Allopurinol 50 mg 07/21/19 09:00 07/26/19 10:13 Zyloprim PO 50 mg DAILY MARK Administration Carvedilol 3.125 mg 07/24/19 11:15 07/26/19 20:29 Coreg PO 3.125 mg Q12HR MARK Administration Dextrose 12.5 gm 07/20/19 13:27 Dextrose 50% Syringe IV PUSH PRN PRN Hypoglycemia Protocol Glucagon 1 mg 07/20/19 13:27 Glucagon For Inj IM PRN PRN Hypoglycemia Protocol Glucose 15 gm 07/20/19 13:27 Glutose 15 PO PRN PRN Hypoglycemia Protocol Guaifenesin/Dextromethorphan 10 ml 07/20/19 19:56 07/27/19 04:07 Robitussin-Dm Syrup PO 10 ml Q4H PRN Administration Cough Hydralazine HCl 10 mg 07/24/19 22:00 07/27/19 06:11 Apresoline Tablet PO 10 mg Q8HR MARK Administration Dextrose 1,000 mls @ 100 mls/hr 07/20/19 13:27 Dextrose 5% 1,000 Ml IVPB PRN PRN Hypoglycemia Protocol Amiodarone HCl/Dextrose 360 mg in 200 mls @ 16.667 mls/hr 07/25/19 16:00 07/27/19 05:10 Nexterone 360 Mg/D5w 200 Ml IV CONT 0.5 mg/min .Q12H MARK 16.7 mls/hr Administration 0.5 MG/MIN Insulin Aspart 3 - 6 units 07/21/19 06:30 07/27/19 07:51 Novolog SUB-Q Not Given AC MARK Protocol Levalbuterol HCl 2 puff 07/23/19 08:10 07/23/19 08:53 Xopenex Hfa INHALATION 2 puff Q6HRT PRN Administration Shortness Of Breath Lidocaine HCl 0.3 ml 07/26/19 07:51 Xylocaine 2% Local I
--- NOTE | 2019-07-27 09:15 | WPDMODSED ---
Moderate Sedation Note-Pt Data Patient Data Diagnosis: Atrial flutter, recurrent following cardioversion last week Moderate left ventricular systolic dysfunction Present Complaint: Shortness of breath Procedure to be performed/Plan: DC cardioversion Allergies Allergy/AdvReac Type Severity Reaction Status Date / Time No Known Allergies Allergy Verified 07/20/19 09:57 Home Medications Medication Instructions Recorded Confirmed Type allopurinol 50 mg PO DAILY 07/20/19 07/20/19 History lisinopril 20 mg PO DAILY 07/20/19 07/20/19 History simvastatin 40 mg PO DAILY 07/20/19 07/20/19 History sitagliptin [Januvia] 25 mg PO DAILY 07/20/19 07/20/19 History Current Medications: Active Medications Acetaminophen (Tylenol Tablet) 650 mg PO Q4H PRN PRN Reason: Mild Pain (1-3) or Fever Last Admin: 07/26/19 01:36 Dose: 650 mg Documented by: Allopurinol (Zyloprim) 50 mg PO DAILY [facility] Last Admin: 07/26/19 10:13 Dose: 50 mg Documented by: Carvedilol (Coreg) 3.125 mg PO Q12HR [facility] Last Admin: 07/26/19 20:29 Dose: 3.125 mg Documented by: Dextrose (Dextrose 50% Syringe) 12.5 gm IV PUSH PRN PRN; Protocol PRN Reason: Hypoglycemia Glucagon (Glucagon For Inj) 1 mg IM PRN PRN; Protocol PRN Reason: Hypoglycemia Glucose (Glutose 15) 15 gm PO PRN PRN; Protocol PRN Reason: Hypoglycemia Guaifenesin/Dextromethorphan (Robitussin-Dm Syrup) 10 ml PO Q4H PRN PRN Reason: Cough Last Admin: 07/27/19 04:07 Dose: 10 ml Documented by: Hydralazine HCl (Apresoline Tablet) 10 mg PO Q8HR MARK Last Admin: 07/27/19 06:11 Dose: 10 mg Documented by: Dextrose (Dextrose 5% 1,000 Ml) 1,000 mls @ 100 mls/hr IVPB PRN PRN; Protocol PRN Reason: Hypoglycemia Amiodarone HCl/Dextrose (Nexterone 360 Mg/D5w 200 Ml) 360 mg in 200 mls @ 16.667 mls/hr IV CONT .Q12H MARK Last Admin: 07/27/19 05:10 Dose: 0.5 mg/min, 16.7 mls/hr Documented by: Insulin Aspart (Novolog) 3 - 6 units SUB-Q AC [facility]; Protocol Last Admin: 07/27/19 07:51 Dose: Not Given Documented by: Levalbuterol HCl (Xopenex Hfa) 2 puff INHALATION Q6HRT PRN PRN Reason: Shortness Of Breath Last Admin: 07/23/19 08:53 Dose: 2 puff Documented by: Lidocaine HCl (Xylocaine 2% Local Inj) 0.3 ml INTRADERM ONCE PRN PRN Reason: to numb area Melatonin (Melatonin) 3 mg PO HS PRN PRN Reason: Sleep Last Admin: 07/26/19 22:01 Dose: 3 mg Documented by: Ondansetron HCl (Zofran Inj) 4 mg IV PUSH Q4H PRN PRN Reason: Nausea Last Admin: 07/21/19 20:47 Dose: 4 mg Documented by: Ramipril (Altace) 5 mg PO QAM [facility] Last Admin: 07/26/19 10:13 Dose: 5 mg Documented by: Rivaroxaban (Xarelto) 15 mg PO DAILY@1700 [facility] Last Admin: 07/26/19 17:12 Dose: 15 mg Documented by: Simvastatin (Zocor) 40 mg PO DAILY [facility] Last Admin: 07/26/19 10:13 Dose: 40 mg Documented by: Sedation/Anesthesia: No previous sedation/anesthesia problems (including family history). [facility] Past Medical History Medical History (Updated 07/25/19 @ 18:04 by New Candelario CRNA) Anemia Atrial flutter with rapid ventricular response CHF (congestive heart failure) CKD (chronic kidney disease) Community acquired pneumonia Diabetes mellitus Fractured tibia and fibula With plates and screws Gout History of cardioversion Hyperlipidemia Hypertension Suspected COVID-19 virus infection Surgical History Surgical History History of open reduction and internal fixation (ORIF) procedure Right tibia and fibula with plates and screws Family History Family History Mother Diabetes mellitus Hypertension Father Emphysema lung Social History Social History Social History: The patient is single and she has 2 children. Her mother jaylene Black is a durable power family law attorney for healthcare. The patient desires to be a full code. She is a cashier credit at [employer]
--- NOTE | 2019-07-27 09:17 | WPDCARDPROC ---
Cardiac Cath Procedure Note Date of procedure:: 07/27/19 Performing physician:: Roberto Yoo MD Indication:: Recurrent atrial flutter Brief clinical history:: This is a 64-year-old female who presented to the hospital last week with symptomatic atrial flutter with RVR. She was cardioverted to sinus rhythm and placed on sotalol. Because of prolongation of the QT interval sotalol was stopped and within 24 hours she was back in atrial flutter. The patient has now been loaded with amiodarone intravenously for several days and another attempt is being made at restoring sinus rhythm. Procedure Procedure performed:: DC cardioversion Sedation/Medication given:: Propofol 50 mg IV push Access site:: Right upper extremity peripheral vein Estimated blood loss:: No blood loss Procedure note:: Patient was in the postabsorptive state defibrillator patches were placed in the AP position. Defibrillator was placed on synchronous mode and set at 200 joules output. She was then sedated using a IV push of propofol giving 50 mg which provided excellent procedural sedation. She was cardioverted with 200 joule synchronized fashion x1 shock restoring normal sinus rhythm Findings:: Normal sinus rhythm successfully restored as detailed above Conclusion:: Successful DC cardioversion of atrial flutter to sinus rhythm using 200 joules x1 shock following several days of intravenous amiodarone loading
--- NOTE | 2019-07-27 09:19 | PM.PNCARD ---
Progress Note: A&P Additional Plan 64-year-old patient with recurrent atrial flutter following discontinuance of sotalol also has some degree of LV systolic dysfunction on echo. Successfully restored again into sinus rhythm this morning with DC cardioversion. Will discontinue the IV amiodarone and place her on 400 mg orally with the intention of reducing this to 200 mg as an outpatient Will arrange for follow-up in the office. For now she should continue the current medical regimen including the oral amiodarone as detailed above. When she is fully awake following cardioversion okay to discharge this afternoon Roberto Yoo MD [facility] Subjective Date/time seen: Date of service: 07/27/19 09:19 Interval history: Patient is asymptomatic and feels well. Atrial flutter persists so patient was electrically cardioverted to sinus rhythm again this morning. IV amiodarone has now been stopped an oral regimen at 400 mg daily has been started Exam Const: General: comfortable and no acute distress HENMT: Mouth: Yes moist mucous membranes Eyes: Sclera: sclerae normal Pupils: Equal, round and reactive pupils present Neck: Neck: supple and no JVD Thyroid: thyroid normal Resp: Effort & Inspection: normal respiratory effort Auscultation: clear to auscultation bilaterally Cardio: Rate: regular rate Rhythm: regular rhythm GI: Auscultation: normal bowel sounds Skin: General skin exam: normal color Neuro: Cognition (Neuro): normal cognition Extrem: General: normal to inspection Objective Data Vital Signs Vital Signs: Vital Signs - 24 hr 07/26/19 09:25 07/26/19 09:30 07/26/19 09:40 Temperature Pulse Rate 137 H 137 H 117 H Respiratory Rate 30 H 28 H 27 H Blood Pressure 104/57 L 115/83 127/96 H Pulse Oximetry 98 98 100 07/26/19 09:50 07/26/19 10:00 07/26/19 10:47 Temperature 36.2 C L Pulse Rate 116 H 114 H 118 H Respiratory Rate 25 H 20 Blood Pressure 130/79 143/99 H Pulse Oximetry 100 100 07/26/19 12:00 07/26/19 14:00 07/26/19 15:58 Temperature 36.3 C L 36.5 C Pulse Rate 127 H 120 H 119 H Respiratory Rate 20 20 Blood Pressure 119/76 139/78 Pulse Oximetry 100 100 07/26/19 16:00 07/26/19 17:54 07/26/19 19:52 Temperature 36.1 C L Pulse Rate 120 H 122 H 126 H Respiratory Rate 18 Blood Pressure 141/97 H Pulse Oximetry 100 07/26/19 20:00 07/26/19 20:29 07/26/19 22:00 Temperature Pulse Rate 122 H 122 H 120 H Respiratory Rate 18 Blood Pressure Pulse Oximetry 100 07/27/19 00:00 07/27/19 02:00 07/27/19 04:00 Temperature 36.6 C 36.3 C L Pulse Rate 121 H 114 H 120 H Respiratory Rate 16 18 Blood Pressure 161/96 H 120/88 Pulse Oximetry 100 98 07/27/19 06:00 07/27/19 08:00 07/27/19 09:05 Temperature Pulse Rate 124 H 137 H 123 H Respiratory Rate 20 Blood Pressure 166/136 H Pulse Oximetry 100 07/27/19 09:06 Temperature Pulse Rate 84 Respiratory Rate 18 Blood Pressure 146/76 H Pulse Oximetry 100 Intake/Output Intake/Output: Intake & Output 07/24/19 07/25/19 07/26/19 07/27/19 23:59 23:59 23:59 23:59 Intake Total 1560 600 880 200 Output Total 800 950 400 Balance 1560 -200 -70 -200 Meds/Results Medications: Active Medications Generic Name Dose Route Start Last Admin Trade Name Freq PRN Reason Stop Dose Admin Acetaminophen 650 mg 07/20/19 12:39 07/26/19 01:36 Tylenol Tablet PO 650 mg Q4H PRN Administration Mild Pain (1-3) or Fever Allopurinol 50 mg 07/21/19 09:00 07/26/19 10:13 Zyloprim PO 50 mg DAILY MARK Administration Amiodarone HCl 400 mg 07/27/19 09:15 Pacerone PO DAILY@0800 MARK Carvedilol 3.125 mg 07/24/19 11:15 07/26/19 20:29 Coreg PO 3.125 mg Q12HR MARK Administration Dextrose 12.5 gm 07/20/19 13:27 Dextrose 50% Syringe IV PUSH PRN PRN Hypoglycemia Protocol Glucagon 1 mg 07/20/19 13:27 Glucagon For Inj IM PRN PRN Hypoglycemi
[2019-07-27] MEDS: ramipriL 5 MG CAPSULE PO (09:58)
[2019-07-27] MEDS: allopurinoL 50 MG TABLET PO (09:58)
[2019-07-27] MEDS: SIMVASTATIN 20 MG TABLET 40 MG PO (09:59)
[2019-07-27] MEDS: carvediloL 3.125 MG TABLET PO (09:59)
[2019-07-27] MEDS: AMIODARONE HCL 200 MG TABLET 400 MG PO (10:38)
--- NOTE | 2019-07-27 12:48 | PCDIET ---
Weekly nutritional screen. Patient is tolerating current diet with average intake of 84%. No weight loss reported. BMI 41.8. No nutritional needs at this time.
--- NOTE | 2019-07-27 14:12 | PM.DS ---
DS: Diagnosis Admitting Diagnosis Admitting Diagnosis: Unspecified atrial flutter Discharge Diagnosis (1) Atrial flutter with rapid ventricular response: Code(s): I48.92 - Unspecified atrial flutter Status: Acute Assessment and Plan: [id number] 4. The patient with AFlutter and was successfully cardioverted 07/19. She was on Sotalol but stopped due to prolonged QT. Patient went back in AFlutter 07/24 and Amio drip started. Xarelto on hold due to anemia and guaiac positive stools. TSH normal. Echo noted. EGD and [place] showing no obvious source of bleeding so Xarelto resumed. Repeat Cardioversion 07/27/19 with successfully converted to normal sinus. (2) CHF (congestive heart failure): Code(s): I50.9 - Heart failure, unspecified Status: Acute Assessment and Plan: CXR 07/19 showing pulmonary edema and BNP 5000. Echo EF 35-40% with enlarged left atrium. Was on SHAHEEN-inhibitor on admission and changed to Ramapril. Taken off betablocker initially due to wheezing but Coreg resumed and tolerating this. Repeat CXR 07/21 showing improvement. Hydralazine added for better BP control. Cardiology following and appreciate their input. (3) Anemia: Code(s): D64.9 - Anemia, unspecified Status: Acute Assessment and Plan: Hgb slightly low but stable in the 10-11 range. Hgb 8.7 once but probably lab error. Probable anemia of chronic disease related to her renal disease. Patient with normal iron studies except sat is low at 18% with low normal ferritin at 40. Patient complaining of dark stools and chronic diarrhea. Stool guaiac positive. EGD normal and Colonoscopy showing internal hemorrhoids. Xarelto resumed. (4) CKD (chronic kidney disease): Qualifiers: Chronic kidney disease stage: unspecified stage Qualified Code(s): N18.9 - Chronic kidney disease, unspecified Code(s): N18.9 - Chronic kidney disease, unspecified Status: Acute Assessment and Plan: Patient's creatinine was up to 3.1 on 07/21 and back to 1.9 at discharge with baseline thought to be about 2. Urine benign. Renal sonogram showing no obstruction. (5) Hypertension: Code(s): I10 - Essential (primary) hypertension Status: Acute Assessment and Plan: BP monitored closely. Blood pressure still elevated. Currently on Ramapril, Coreg and Hydralazine. Betablockers was causing some wheezing but appears to be tolerating the Coreg. Renal function stable and appears to be tolerating Ramapril dose. (6) Diabetes mellitus: Code(s): E11.9 - Type 2 diabetes mellitus without complications Status: Acute Assessment and Plan: A1c 5.7. Glucose monitored closely. Glucose well controlled. Continue sliding scale. (7) Gout: Code(s): M10.9 - Gout, unspecified Status: Chronic Assessment and Plan: Stable. Continue with allopurinol. (8) Hyperlipidemia: Code(s): E78.5 - Hyperlipidemia, unspecified Status: Chronic Assessment and Plan: AST to 56 and ALT to 51 before normalizing. LDL<30 with HDL 55. We continued with simvastatin. (9) Suspected COVID-19 virus infection: Code(s): R68.89 - Other general symptoms and signs Status: Acute Assessment and Plan: COVID-19 is negative. Influenza is also negative. (10) Community acquired pneumonia: Code(s): J18.9 - Pneumonia, unspecified organism Status: Acute Assessment and Plan: Vocational Training Teacher felt that the patient should be treated for CAP and patient was started on Rocephin and azithromycin. However. CXR findings are more compatible with heart failure especially in light of the fact she has had no fever and no significant cough with normal white cell count. Repeat chest x-ray 07/21 showed clearing of the infiltrates which suggests fluid. Blood culture NGTD. Azithromycin discontinued with increasing QT interval
== END 2019-07-27 16:00 | disposition home or self-care (01) | DRG 309 ==
LOC: ANHED 12:55 → ANHICU 13:10 → ANHIMU 07-21 19:13
PROVIDERS: Internal Medicine; Internal Medicine Cardiovascular Disease; Internal Medicine Gastroenterology; Nurse Practitioner; Nurse Practitioner Adult Health; Specialist; Admitting Provider Hospitalist; Emergency Provider Family Medicine; Visit Provider Internal Medicine
PROC: 5A2204Z Restoration of Cardiac Rhythm, Single (ICD-10-PCS; principal; 2019-07-20 15:00)
PROC: 0DJ08ZZ Inspection of Upper Intestinal Tract, Via Natural or Artificial Opening Endoscopic (ICD-10-PCS; CPT 43235; principal; 2019-07-26 09:00)
DX: I48.92 Unspecified atrial flutter (principal); I13.0 Hypertensive heart and chronic kidney disease with heart failure and stage 1 through stage 4 chronic kidney disease, or unspecified chronic kidney disease; Z68.41 Body mass index [BMI] 40.0-44.9, adult; I50.9 Heart failure, unspecified; N18.9 Chronic kidney disease, unspecified; E11.22 Type 2 diabetes mellitus with diabetic chronic kidney disease; M10.9 Gout, unspecified; E78.5 Hyperlipidemia, unspecified; E66.01 Morbid (severe) obesity due to excess calories; K64.8 Other hemorrhoids
CPT/HCPCS: 36415; 36600; 71045; 71046; 76775; 80048; 80053; 80061; 80069; 80074; 80076; 81001; 82274; 82607; 82728; 82805; 83036; 83540; 83550; 83615; 83735; 83880; 84443; 84484; 85025; 85027; 85610; 85730; 86140; 87040; 87635; 87804; 92960; 93005; 93306; 94640; 96365; 96366; 96368; 96375; 99285; A9270; J0153; J0282; J0456; J0696; J1644; J1940; J2405; J2704; J3475; J7030; J7120; U0003

== ENCOUNTER 2019-08-03 10:25 | Emergency (ER) | payer OTHER, SELFPAY ==
--- NOTE | ~2019-08-03 | XR_ITS ---
XR chest 2V DATE: 08/03/2019 11:06 INDICATION: Shortness of breath TECHNIQUE: PA and lateral views COMPARISON: 07/22/2019 PA and lateral chest FINDINGS: There is cardiomegaly. There is pulmonary vascular redistribution suggesting mild pulmonary venous hypertension. There is mild prominence of the fissures which may indicate subpleural edema. M inimal pleural effusions are suggested (blunting of the posterior costophrenic angles). Minimal atele ctasis or infiltrate at the lung bases. No pulmonary consolidation. No pneumothorax. There is mild dextro scoliosis. Diffuse idiopathic skeletal hyperostosis of the thoracic and lumbar s pine. IMPRESSION: Cardiomegaly, mild congestive changes Minimal atelectasis or infiltrate at the lung bases Reviewed, dictated and finalized at location A.
[2019-08-03 10:29] VITALS: BP 158/111; PULSE 128; RESP 25; TEMP 36.8; O2SAT 95
--- NOTE | 2019-08-03 10:30 | ED.ARRPALP ---
HPI - Arrhythmia/Palpitations General Chief Complaint: Arrhythmia/Palpitations Stated Complaint: heart out of rhythm Time Seen by Provider: 08/03/19 10:30 History of Present Illness HPI narrative: 64 yo female w/ h/o atrial fibrillation and CHF presents to the c/o papitations. She has felt rapid heart rate since last night. This is associated with mild dypnea. No CP. She had similar symptoms when she was in atrial fibrillation. She was recently in the hospital for atrial fibrillation. She had cardioversion x2 and was started on amiodarone. She was discharged on 07/26. Related Data Home Medications Medication Instructions Recorded Confirmed Januvia 25 mg PO DAILY 07/20/19 07/20/19 allopurinol 50 mg PO DAILY 07/20/19 07/20/19 simvastatin 40 mg PO DAILY 07/20/19 07/20/19 Allergies Allergy/AdvReac Type Severity Reaction Status Date / Time No Known Allergies Allergy Verified 08/03/19 10:36 Review of Systems Review of Systems: All systems reviewed & are unremarkable except as noted in HPI and below Constitutional: Constitutional: Denies fever(s) and Denies weakness ENT: Denies sore throat Cardiovascular: Cardiovascular: Denies chest pain Respiratory: Respiratory: Reports dyspnea Gastrointestinal: Gastrointestinal: Denies abdominal pain and Denies nausea Neurologic: Denies numbness and Denies weakness [facility] Past Medical History Medical History Anemia Atrial flutter with rapid ventricular response CHF (congestive heart failure) CKD (chronic kidney disease) Community acquired pneumonia Diabetes mellitus Fractured tibia and fibula With plates and screws Gout History of cardioversion Hyperlipidemia Hypertension Suspected COVID-19 virus infection Surgical History Surgical History History of open reduction and internal fixation (ORIF) procedure Right tibia and fibula with plates and screws Family History Family History Mother Diabetes mellitus Hypertension Father Emphysema lung Social History Social History Social History: The patient is single and she has 2 children. Her mother jaylene Black is a durable power energy attorney for healthcare. The patient desires to be a full code. 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 Lifelong nonsmoker no alcohol no marijuana no illicit drugs. Smoking status: Never smoker Second hand tobacco smoke exposure: Yes Alcohol intake: never Substance use: never Additional occupation/education comments: [employer] cashier assistant Gender identity (if verbalized by the patient): Female Spiritual care concerns: No Agree to blood products: Yes Exam Const: General: no acute distress and alert Nutritional Appearance: obese Orientation/consciousness: patient oriented x3 HENMT: Head: normal to inspection Resp: Effort & Inspection: normal respiratory effort Auscultation: clear to auscultation bilaterally Cardio: Rate: tachycardic Rhythm: regular rhythm GI: Other: ND, NT Skin: General skin exam: normal color Neuro: General: patient oriented x3, moves all extremities and CN's II-XI intact bilaterally Speech: normal speech Extrem: General: normal to inspection Course Vital Signs Vital signs: Vital Signs Temperature 36.8 C 08/03/19 10:29 Pulse Rate 128 H 08/03/19 10:29 Respiratory Rate 25 H 08/03/19 10:29 Blood Pressure 158/111 H 08/03/19 10:29 Pulse Oximetry 95 08/03/19 10:29 Temperature 36.8 C 08/03/19 10:29 Pulse Rate 97 08/03/19 12:38 Respiratory Rate 22 H 08/03/19 12:38 Blood Pressure 128/95 H 08/03/19 12:38 Pulse Oximetry 98 08/03/19 12:38 MDM - Arrhythmia/Palpitations MDM Narrative Medical decision making narrative: She presented in atrial flutter then converted to a-fib. heart rate controll
--- NOTE | 2019-08-03 10:49 | ECG_ITS ---
Measurements Intervals [place] Rate: 128 P: NE: 0 QRS: 60 QRSD: 90 T: 43 QT: 309 QTc: 452 Interpretive Statements ATRIAL FLUTTER/TACHYCARDIA WITH RAPID VENTRICULAR RESPONSE NONSPECIFIC ST & T-WAVE ABNORMALITY- ANTEROLAT/INF LEADS BASELINE ARTIFACT- I, II ABNORMAL ECG Electronically Signed On 08-03-2019 11:03:37 CDT by Salty Mari D.O.
[2019-08-03 10:58] LABS: Basophils Percent Auto 0.4 % (0.2-1.2); Eosinophils Absolute Auto 0.1 K/mm3 (0-0.3); Eosinophils Percent Auto 0.9 % (0-4.4); Hematocrit 36.6 % (37.0-47.0); Hemoglobin 11.5 g/dL (12.0-15.0); Immature Granulocyte Absolute 0.01 K/mm3 (0.00-0.031); Immature Granulocyte Percent A 0.2 % (0-0.5); Mean Corpuscular HGB Conc 31.4 g/dl (32-36); Mean Corpuscular Hemoglobin 28.7 pg (26-34); Mean Corpuscular Volume 91.3 fl (80-100); Monocytes Absolute Auto 0.6 K/mm3 (0.1-0.6); Monocytes Percent Auto 10.1 % (2.6-8.5); Neutrophils Percent Auto 55.4 % (45.5-73.1); Platelet Count Result 220 k/mm3 (150-375); Red Blood Count 4.01 M/mm3 (4.2-5.4); Red Cell Distribution Width 15.3 % (11.5-14.5); White Blood Count 5.5 K/mm3 (4.5-10.0)
--- NOTE | 2019-08-03 11:03 | PC.NURSE ---
Pt taken to Xray
[2019-08-03 11:07] LABS: INR 1.6; Prothrombin Time 18.6 Seconds (11.1-14.7)
[2019-08-03 11:08] LABS: Partial Thromboplastin Time 36.5 SECONDS (22.3-36.8)
[2019-08-03 11:11] LABS: Blood Urea Nitrogen 36 mg/dL (7-17); Calcium 9.5 mg/dL (8.4-10.2); Carbon Dioxide 22 mmol/L (22-30); Chloride 111 mmol/L (98-107); Estimated CRCL calculation 25 ml/min; Estimated Glomerular Filt Rate 25; Glucose 83 mg/dL (65-105); Sodium 142 mmol/L (137-145)
[2019-08-03 11:23] LABS: NT Pro B Type Natriuretic Pept 5270 PG/ML (5-100); Troponin I < 0.012 ng/mL (0.000-0.034)
[2019-08-03 11:51] VITALS: BP 141/97; PULSE 113; RESP 23; O2SAT 99
[2019-08-03] MEDS: LABETALOL HCL INJ 100 MG/20 ML VIAL 10 MG IV PUSH (11:51)
[2019-08-03 12:38] VITALS: BP 128/95; PULSE 97; RESP 22; O2SAT 98
== END 2019-08-03 12:40 | disposition home or self-care (01) ==
PROVIDERS: Emergency Provider Emergency Medicine; PCP Internal Medicine
DX: I48.92 Unspecified atrial flutter (principal); I48.91 Unspecified atrial fibrillation; I13.0 Hypertensive heart and chronic kidney disease with heart failure and stage 1 through stage 4 chronic kidney disease, or unspecified chronic kidney disease; E11.22 Type 2 diabetes mellitus with diabetic chronic kidney disease; N18.9 Chronic kidney disease, unspecified; I50.9 Heart failure, unspecified; D64.9 Anemia, unspecified; Z79.84 Long term (current) use of oral hypoglycemic drugs; E78.5 Hyperlipidemia, unspecified; R94.31 Abnormal electrocardiogram [ECG] [EKG]
CPT/HCPCS: 36415; 71046; 80048; 83880; 84484; 85025; 85610; 85730; 93005; 96374; 96375; 99284

== ENCOUNTER 2022-06-26 07:18 | Inpatient (IN) | payer MEDICARE, MEDICAID, SELFPAY ==
[2022-06-26] VITALS (13 sets, daily range): BP systolic 164–218; BP diastolic 70–113; PULSE 76–97; RESP 18–20; TEMP 35.8–37.1; O2SAT 99–100; BMI 36.3
--- NOTE | ~2022-06-26 | CT_ITS ---
EXAMINATION: CT abdomen pelvis wo con DATE: 06/26/2022 08:28 INDICATION: Upper abdominal pain. Nausea, vomiting, and diarrhea. TECHNIQUE: Computed tomography (CT) of the abdomen and pelvis was performed without intravenous contr ast. Automated exposure control and iterative reconstruction technique were employed. The dose-length product was 1059.10 mGy-cm. COMPARISON: None. FINDINGS: The visualized portions of the lung bases demonstrate mild atelectasis. No pleural effusion . Cardiomegaly is noted. No pericardial effusion. The liver, gallbladder, spleen, pancreas, and adren al glands are normal. There are masses in the kidneys containing fat measuring up to 10 mm in the lef t, consistent with angiomyolipomas. There is an 8 mm cyst in left kidney. There is diverticulosis of the colon without evidence of diverticulitis. There is wall thickening of the transverse and descendi ng colon, consistent with colitis. There are no pathologically enlarged lymph nodes. There is no free intraperitoneal fluid. There are multiple lipomas in the duodenum and proximal jejunum. There is sev ere lumbar spondylosis. IMPRESSION: 1. Colitis involving the transverse and descending colon. Reviewed, dictated and finalized at location A.
--- NOTE | 2022-06-26 07:37 | ED.GENADULT ---
HPI - General Adult General Chief complaint: Nausea/Vomiting/Diarrhea Stated complaint: N/V/D Time Seen by Provider: 06/26/22 07:23 Source: RN notes reviewed History of Present Illness HPI narrative: Patient presents to emergency part from home for nausea vomit diarrhea. Patient states symptoms began approximately 3 days ago. States that she had numerous episodes of diarrhea as well as several episodes of vomiting. States been associated with abdominal pain in the lower abdomen described as cramping in nature. States she has not had any fevers or chills denies any chest pain or shortness of breath states that she last took Tylenol for pain last night. States she has not been able to take any of her home medications for the past 24 hours. Patient states that her abdominal pain does not radiate Related Data Home Medications Medication Instructions Recorded Confirmed allopurinol 100 mg tablet 50 mg PO DAILY 07/20/19 04/05/22 simvastatin 40 mg tablet 40 mg PO DAILY 07/20/19 04/05/22 sitagliptin phosphate 25 mg tablet 25 mg PO DAILY 07/20/19 04/05/22 (Januvia) Allergies Allergy/AdvReac Type Severity Reaction Status Date / Time No Known Allergies Allergy Verified 06/26/22 07:36 Review of Systems Review of Systems: Gen.: Denies fevers or chills ENT: Denies congestion Respiratory: Denies shortness of breath or cough CV: Denies chest pain or palpitations GI: See HPI denies burning, urgency, frequency or hematuria Musculoskeletal: Denies back pain or muscle pain Neuro: Denies numbness, tingling, weakness or focal weakness Skin: Denies rash Except as documented, all other systems reviewed and negative [facility] Past Medical History Medical History (Updated 06/26/22 @ 12:14 by Kuldeep Moulton DO) Anemia Atrial flutter with rapid ventricular response CHF (congestive heart failure) CKD (chronic kidney disease) Community acquired pneumonia Diabetes mellitus Fractured tibia and fibula With plates and screws Gout History of cardioversion Hyperlipidemia Hypertension Suspected COVID-19 virus infection Surgical History Surgical History History of open reduction and internal fixation (ORIF) procedure Right tibia and fibula with plates and screws Family History Family History Mother Diabetes mellitus Hypertension Father Emphysema lung Social History Social History Social History: The patient is single and she has 2 children. Her mother jaylene Black is a durable power state attorney for healthcare. The patient desires to be a full code. 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 Lifelong nonsmoker no alcohol no marijuana no illicit drugs. Smoking status: Never smoker Second hand tobacco smoke exposure: Yes Alcohol intake: never Substance use: never Living arrangements: with family Occupation/Education: occupation Additional occupation/education comments: [employer] cashier and waiter/waitress Gender identity (if verbalized by the patient): Female Spiritual care concerns: No Agree to blood products: Yes Exam Narrative: APPEARANCE: No acute distress, nontoxic, resting in bed HEENT: Normocephalic, atraumatic, OMM RESPIRATORY: No respiratory distress, clear to auscultation bilaterally with no rhonchi wheezing or rales CARDIOVASCULAR: RRR s murmur ABDOMINAL: Soft nondistended tender palpation right lower quadrant and left lower quadrant no tenderness in right upper quadrant left upper quadrant no rebound or guarding MUSCULOSKELETAl: Moves all extremities. No clubbing, cyanosis or edema. NEURO: Awake and alert. Following commands, speech normal, no focal deficits SKIN:: Warm, dry. Normal Color PSYCHIATRIC: Normal affect/mood Course Course Emergency Course: Patient p.o. challenged in the emergency department continues to have nausea will admit at this
[2022-06-26 07:41] LABS: Basophils Percent Auto 0.7 % (0.2-1.2); Hematocrit 38.5 % (37.0-47.0); Hemoglobin 12.1 g/dL (12.0-15.0); Immature Granulocyte Absolute 0.02 K/mm3 (0.00-0.031); Immature Granulocyte Percent A 0.5 % (0-0.5); Lymphocytes Absolute Auto 1.13 K/mm3 (0.9-3.2); Lymphocytes Percent Auto 27.6 % (18.3-44.2); Mean Corpuscular HGB Conc 31.4 g/dl (32-36); Mean Corpuscular Hemoglobin 28.7 pg (26-34); Mean Corpuscular Volume 91.2 fl (80-100); Mean Platelet Volume 11.7 fl (7.4-10.4); Monocytes Absolute Auto 0.7 K/mm3 (0.1-0.6); Monocytes Percent Auto 17.4 % (2.6-8.5); Neutrophils Absolute Auto 2.2 K/mm3 (1.3-6.7); Neutrophils Percent Auto 53.8 % (45.5-73.1); Platelet Count Result 184 k/mm3 (150-375); Red Blood Count 4.22 M/mm3 (4.2-5.4); Red Cell Distribution Width 16.6 % (11.5-14.5); White Blood Count 4.1 K/mm3 (4.5-10.0)
[2022-06-26 07:56] LABS: Alanine Aminotransferase 24 U/L (6-35); Alkaline Phosphatase 101 U/L (38-126); Anion Gap 5 mmol/L (8-16); Aspartate Amino Transferase 39 U/L (14-36); Bilirubin,Total 0.5 mg/dL (0.2-1.3); Blood Urea Nitrogen 26 mg/dL (7-17); Calcium 9.4 mg/dL (8.4-10.2); Carbon Dioxide 28 mmol/L (22-30); Chloride 106 mmol/L (98-107); Estimated CRCL calculation 24 ml/min; Estimated Glomerular Filt Rate 26; Glucose 103 mg/dL (65-110); Lipase 67 U/L (23-300); Potassium 3.5 mmol/L (3.4-5.0); Sodium 139 mmol/L (137-145)
[2022-06-26] MEDS: SODIUM CHLORIDE 0.9% IV 1,000 ML 999 ML IV CONT (07:56)
[2022-06-26] MEDS: FAMOTIDINE 20 MG/2 ML VIAL IV PUSH (07:56)
[2022-06-26 08:57] LABS: Appearance Urine Clear (Clear); Bacteria Urine None Seen /hpf; Bilirubin Urine Negative (Negative); Blood Urine Trace (Negative); Color Urine Yellow (Yellow); Glucose Urine UA Negative (Negative); Ketones Urine Negative (Negative); Leukocyte Esterase Ur Negative LEU/UL (Negative); Nitrate Urine Negative (Negative); Protein Urine 3+ mg/dL (Negative); Specific Grav Ur 1.017 (1.001-1.035); Squamous Epithelial Cell Urine Occasional /hpf (Few); Urobilinogen Urine 0.2 mg/dL (<2.0); WBC Urine 0-5 /hpf; pH Urine 5.5 (5.0-9.0)
[2022-06-26 08:59] LABS: Add Urine Microscopic? YES
[2022-06-26] MEDS: PIPERACILLN/TAZ 3.375GM/NS50ML 3.375 GM/50 ML BAG IVPB (12:02)
--- NOTE | 2022-06-26 13:30 | PM.IMHP ---
H&P: HPI History of Present Illness Date/Time: 06/26/22 13:30 Chief Complaint: Nausea, vomiting, and diarrhea. Narrative: This is a 66-year-old female with history of heart failure with reduced ejection fraction (35 to 40% on echo in June 2019), mitral valve regurgitation, paroxysmal atrial fibrillation, hypertension, dyslipidemia, type 2 diabetes mellitus, chronic kidney disease stage 4, and sleep apnea who presented to the emergency department from home for for evaluation of nausea, vomiting, and diarrhea. Patient provides the following history. She has not been feeling well since Tuesday night when she developed severe nausea, diffuse abdominal cramping, loose stools, and a subjective fever. She had several episodes of emesis as well but that seems to have improved. She continues to have loose stools however and reports having 10 to 12 nonbloody stools since last evening. She has been taking Tylenol for the subjective fever and abdominal cramping. She has not taken any other medications. She has not been able to hold down any other medications in last 24 hours and her blood pressures have been running high. She has not had a documented fever. She denies sick contacts, recent travel, and recent antibiotic use. She also denies cold and flu symptoms, chest pain, and shortness of breath. She was afebrile on arrival to the emergency department. Blood pressure on arrival was 218/113 but has improved to the [address] of the abdomen and pelvis showed colitis involving the transverse and descending colon. In the ED she was given a bolus of normal saline and was started on Zosyn. She is being admitted in this setting for further treatment and evaluation. Review of Systems Review of Systems: Twelve systems were reviewed and are negative except for as per HPI. [facility] Past Medical History Medical History (Updated 06/26/22 @ 22:04 by Ni Keating PA-C) Anemia Chronic kidney disease, stage 4 (severe) Gout Heart failure with reduced ejection fraction EF 35 to 40% in June 2019. Hyperlipidemia Hypertension Paroxysmal atrial fibrillation Paroxysmal atrial flutter Type 2 diabetes mellitus Surgical History Surgical History (Updated 06/26/22 @ 13:44 by Ni Keating PA-C) History of appendectomy History of cardioversion History of open reduction and internal fixation (ORIF) procedure Repair right tibia/fibula fracture. History of tonsillectomy Family History Family History Mother Diabetes mellitus Hypertension Father Emphysema lung Social History Social History (Updated 06/26/22 @ 22:02 by Ni Keating PA-C) Social History: Surrogate medical decision maker: Maria Guadalupe Black, mother. Code status: Full code. Smoking status: Never smoker Second hand tobacco smoke exposure: Yes Alcohol intake: never Substance use: never Substance use type: does not use Lack of Transportation: No Lack of Food: Never True Current Housing: I Have Housing Concerned About Future Housing: No Difficulty Paying Gas/Electric Bills: No Difficulty Paying for Meds: No Currently Unemployed: No Education: Decline to Answer Difficulty w/ Childcare or Family Care: No Living arrangements: with family Additional living arrangements comments: Single with 2 children. Lives in [place]. Occupation/Education: occupation Additional occupation/education comments: [employer]. Spiritual care concerns: No Agree to blood products: Yes Meds Home Medications and Allergies Home Medications Medication Instructions Recorded Confirmed Type allopurinol 100 mg tablet 100 mg PO DAILY 07/20/19 06/26/22 History simvastatin 40 mg tablet 40 mg PO DAILY 07/20/19 06/26/22 History sitagliptin phosphate 25 mg tablet 25 mg PO DAILY 07/20/19 06/26/22 History ([place]) hydralazine 25 mg tablet 25 mg PO Q8HR #90 tabs 07/27/19 06/26/22 Rx ca
[2022-06-26] MEDS: SODIUM CHLORIDE 0.9% IV 1,000 ML 80 ML IV CONT (15:00)
--- NOTE | 2022-06-26 16:20 | ADMGEN ---
This patient, Sofia Blevins, was admitted to IMU Room 205-02. Patient/family oriented to hospital policies and general routines including ID bracelet, bed and alarms, visiting hours, pain management, procedures, bathroom and other care routines, personal items, smoking policy, room service/diet, and visiting hours. Information on how to activate the Rapid Response Team has been discussed. Patient/Family are encouraged to report perceived risks to care and to ask questions if they do not understand what they are told or what they should do.
[2022-06-26] MEDS: PIPERACILLIN/TAZ 2.25G/NS 50ML 2.25 GM/50 ML BAG IVPB (18:18)
[2022-06-26] MEDS: ZOLPIDEM TARTRATE (*CRX) 5 MG TABLET PO (21:05)
[2022-06-26] MEDS: hydrALAZINE HCL 25 MG TABLET PO (21:05)
[2022-06-26 23:26] LABS: Glucose Point of Care 93 mg/dl (65-105)
[2022-06-27] VITALS (18 sets, daily range): BP systolic 143–183; BP diastolic 65–90; PULSE 71–100; RESP 18–20; TEMP 35.6–37; O2SAT 96–100
[2022-06-27] MEDS: PIPERACILLIN/TAZ 2.25G/NS 50ML 2.25 GM/50 ML BAG IVPB ×4 (00:45→17:36)
[2022-06-27] MEDS: SODIUM CHLORIDE 0.9% IV 1,000 ML 80 ML IV CONT (04:10)
[2022-06-27 05:34] LABS: Eosinophils Percent Auto 0.2 % (0-4.4); Hematocrit 34.9 % (37.0-47.0); Hemoglobin 10.8 g/dL (12.0-15.0); Immature Granulocyte Absolute 0.02 K/mm3 (0.00-0.031); Immature Granulocyte Percent A 0.5 % (0-0.5); Lymphocytes Absolute Auto 1.15 K/mm3 (0.9-3.2); Lymphocytes Percent Auto 27.5 % (18.3-44.2); Mean Corpuscular HGB Conc 30.9 g/dl (32-36); Mean Corpuscular Hemoglobin 28.7 pg (26-34); Mean Corpuscular Volume 92.8 fl (80-100); Mean Platelet Volume 12.6 fl (7.4-10.4); Monocytes Absolute Auto 0.8 K/mm3 (0.1-0.6); Monocytes Percent Auto 17.9 % (2.6-8.5); Neutrophils Absolute Auto 2.2 K/mm3 (1.3-6.7); Neutrophils Percent Auto 52.9 % (45.5-73.1); Platelet Count Result 186 k/mm3 (150-375); Red Blood Count 3.76 M/mm3 (4.2-5.4); Red Cell Distribution Width 16.7 % (11.5-14.5); White Blood Count 4.2 K/mm3 (4.5-10.0)
[2022-06-27 05:47] LABS: Alanine Aminotransferase 20 U/L (6-35); Albumin Level 3.3 g/dL (3.5-5.1); Alkaline Phosphatase 83 U/L (38-126); Anion Gap 8 mmol/L (8-16); Aspartate Amino Transferase 29 U/L (14-36); Bilirubin,Total 0.5 mg/dL (0.2-1.3); Blood Urea Nitrogen 22 mg/dL (7-17); Calcium 8.5 mg/dL (8.4-10.2); Carbon Dioxide 21 mmol/L (22-30); Chloride 111 mmol/L (98-107); Estimated CRCL calculation 24 ml/min; Estimated Glomerular Filt Rate 26; Glucose 84 mg/dL (65-110); Magnesium 2.1 mg/dL (1.6-2.3); Potassium 3.6 mmol/L (3.4-5.0); Sodium 140 mmol/L (137-145)
[2022-06-27] MEDS: hydrALAZINE HCL 25 MG TABLET PO ×3 (05:59→21:11)
[2022-06-27 06:01] LABS: Hemoglobin A1C 5.4 % (<5.7)
[2022-06-27] MEDS: SIMVASTATIN 20 MG TABLET 40 MG PO (08:18)
[2022-06-27] MEDS: allopurinoL 100 MG TABLET PO (08:22)
[2022-06-27] MEDS: POTASSIUM CHLORIDE 20 MEQ TABLET.ER PO (08:23)
[2022-06-27] MEDS: ENOXAPARIN 30 MG/0.3 ML SYRINGE SUB-Q (08:23)
[2022-06-27 11:44] LABS: Glucose Point of Care 106 mg/dl (65-105)
[2022-06-27] MEDS: carvediloL 6.25 MG TABLET PO ×2 (11:56→21:11)
--- NOTE | 2022-06-27 15:29 | PM.IMPN ---
Progress Note: A&P Assessment and Plan (1) Colitis: Code(s): K52.9 - Noninfective gastroenteritis and colitis, unspecified Status: Acute Assessment and Plan: Presumably infectious, she has been started on Zosyn. Stool studies ordered. Continue supportive care including analgesics and antiemetics as needed. She will be judiciously hydrated overnight. Nausea, vomiting, and diarrhea. HPI-Narrative: This is a 66-year-old female with history of heart failure with reduced ejection fraction (35 to 40% on echo in June 2019), mitral valve regurgitation, paroxysmal atrial fibrillation, hypertension, dyslipidemia, type 2 diabetes mellitus, chronic kidney disease stage 4, and sleep apnea who presented to the emergency department from home for for evaluation of nausea, vomiting, and diarrhea. Patient provides the following history. She has not been feeling well since Tuesday night when she developed severe nausea, diffuse abdominal cramping, loose stools, and a subjective fever. She had several episodes of emesis as well but that seems to have improved. She continues to have loose stools however and reports having 10 to 12 nonbloody stools since last evening. She has been taking Tylenol for the subjective fever and abdominal cramping.? She has not taken any other medications. She has not been able to hold down any other medications in last 24 hours and her blood pressures have been running high. She has not had a documented fever. She denies sick contacts, recent travel, and recent antibiotic use. She also denies cold and flu symptoms, chest pain, and shortness of breath. She was afebrile on arrival to the emergency department. Blood pressure on arrival was 218/113 but has improved to the [address] of the abdomen and pelvis showed colitis involving the transverse and descending colon. In the ED she was given a bolus of normal saline and was started on Zosyn.? She is being admitted in this setting for further treatment and evaluation. 06/27/2022 interval history: 66-year-old female presented with complaint of nausea or vomiting and diarrhea is found to have a colitis patient is being treated with Zosyn today patient states sees feeling little better and able to take p.o. intake however diarrhea persist, also patient has history hypertension has not been taking her medication hydralazine and Coreg for sometime her blood pressure is elevated will resume the blood pressure medications and monitor, patient denies any chest pain shortness of breath or dizziness, will have a PT OT evaluate the patient. (2) Hypertension: Code(s): I10 - Essential (primary) hypertension Status: Acute Assessment and Plan: Blood pressures have been running high due to the fact that she could not hold down her medications last 24 hours. Nausea and vomiting have ceased and we will resume her antihypertensives. Continue to monitor closely. (3) Chronic kidney disease, stage 4 (severe): Code(s): N18.4 - Chronic kidney disease, stage 4 (severe) Status: Acute Assessment and Plan: Creatinine is stable on review of previous labs. (4) Type 2 diabetes mellitus: Code(s): E11.9 - Type 2 diabetes mellitus without complications Status: Acute Assessment and Plan: Hold Januvia until tolerating p.o.. Initiate sliding scale insulin, Accu-Cheks, and hypoglycemic protocol. (5) Heart failure with reduced ejection fraction: Code(s): I50.20 - Unspecified systolic (congestive) heart failure Status: Acute Assessment and Plan: Currently clinically compensated if not a bit dry. Monitor volume status closely while hydrating. Subjective Date/time seen: 06/27/22 15:29 Nausea, vomiting, and diarrhea. HPI-Narrative: This is a 66-year-old female with history of heart failure with reduced ejection fraction (35 to 40% on echo in June 2019), mitral valve regurgitation, paroxysmal atrial fibrillation, hypertensio
[2022-06-27 16:32] LABS: Glucose Point of Care 97 mg/dl (65-105)
--- NOTE | 2022-06-27 19:41 | WPDGICN ---
Assessment and Plan Assessment and plan (1) Colitis: Code(s): K52.9 - Noninfective gastroenteritis and colitis, unspecified Status: Acute Assessment and Plan: started on abx wbc was normal feeling better advance diet as tolerated last colonoscopy 2019 unremarkable (2) Nausea & vomiting: Code(s): R11.2 - Nausea with vomiting, unspecified Status: Acute Assessment and Plan: antiemetics prn (3) Acute diarrhea: Code(s): R19.7 - Diarrhea, unspecified Status: Acute Assessment and Plan: on treatment stool sample ordered (4) Chronic kidney disease, stage 4 (severe): Code(s): N18.4 - Chronic kidney disease, stage 4 (severe) Status: Acute Assessment and Plan: at baseline monitor (5) Type 2 diabetes mellitus: Code(s): E11.9 - Type 2 diabetes mellitus without complications Status: Acute (6) Heart failure with reduced ejection fraction: Code(s): I50.20 - Unspecified systolic (congestive) heart failure Status: Acute GI Consult Note Consult date/time: 06/27/22 19:41 Reason for consult: n/v, colitis HPI: Sofia Blevins is a 66 year old female with history of systolic heart failure (EF 35 to 40% on echo June 2019), mitral valve regurgitation, paroxysmal atrial fibrillation, hypertension, type 2 diabetes mellitus, chronic kidney disease stage 4 who came to the emergency department from home with new onset of nausea, vomiting, and diarrhea. This started last Tuesday night with acute onset of severe nausea, diffuse abdominal cramping, loose stools, and chills. This was followed by emesis. She had subjective fever and abdominal cramping so took tylenol.?She denies sick contacts, recent travel, and recent antibiotic use. CT of the abdomen and pelvis reviewed and showed colitis involving the transverse and descending colon. wbc 4k, hb 10, crat 2.3 (near baseline). Started on abx, feeling better but still with pain. She had egd and colonoscopy [place] [address] Dockery because rectal bleeding, only had hemorrhoids. Review of Systems Constitutional: Constitutional: Reports chills Eyes: Eyes: Denies blurry vision ENT: Reports Normal hearing present Cardiovascular: Cardiovascular: Denies chest pain Respiratory: Respiratory: Denies cough Gastrointestinal: Gastrointestinal: Reports abdominal pain, Reports diarrhea, Reports nausea and Reports vomiting Genitourinary: Genitourinary: Denies hematuria Musculoskeletal: Musculoskeletal: Denies back pain Integumentary/Breasts: Skin/Breast: Denies rash Neurologic: Denies Abnormal speech present Psychiatric: Psychiatric: Denies behavioral changes [facility] Past Medical History Medical History (Updated 06/27/22 @ 19:47 by Shaheen Ortega MD) Acute diarrhea Anemia Chronic kidney disease, stage 4 (severe) Gout Heart failure with reduced ejection fraction EF 35 to 40% in June 2019. Hyperlipidemia Hypertension Paroxysmal atrial fibrillation Paroxysmal atrial flutter Type 2 diabetes mellitus Surgical History Surgical History (Updated 06/26/22 @ 13:44 by Ni Keating PA-C) History of appendectomy History of cardioversion History of open reduction and internal fixation (ORIF) procedure Repair right tibia/fibula fracture. History of tonsillectomy Family History Family History Mother Diabetes mellitus Hypertension Father Emphysema lung Social History Social History (Updated 06/26/22 @ 22:02 by Ni Keating PA-C) Social History: Surrogate medical decision maker: Maria Guadalupe Black, mother. Code status: Full code. Smoking status: Never smoker Second hand tobacco smoke exposure: Yes Alcohol intake: never Substance use: never Substance use type: does not use Lack of Transportation: No Lack of Food: Never True Current Housing: I Have Housing Concerned About Future Housing:
[2022-06-27 20:01] LABS: Glucose Point of Care 114 mg/dl (65-105)
[2022-06-27] MEDS: AMOXICILLIN/CLAVULANATE K 500-125 MG TAB 1 TABLET PO (21:11)
[2022-06-27] MEDS: ZOLPIDEM TARTRATE (*CRX) 5 MG TABLET PO (21:11)
[2022-06-28] VITALS (10 sets, daily range): BP systolic 139–175; BP diastolic 80–99; PULSE 74–88; RESP 16–20; TEMP 36.3–36.6; O2SAT 100
[2022-06-28] MEDS: hydrALAZINE HCL 25 MG TABLET PO ×3 (05:15→21:18)
[2022-06-28 05:17] LABS: Hematocrit 31.7 % (37.0-47.0); Hemoglobin 9.9 g/dL (12.0-15.0); Mean Corpuscular HGB Conc 31.2 g/dl (32-36); Mean Corpuscular Hemoglobin 28.1 pg (26-34); Mean Corpuscular Volume 90.1 fl (80-100); Mean Platelet Volume 11.2 fl (7.4-10.4); Platelet Count Result 173 k/mm3 (150-375); Red Blood Count 3.52 M/mm3 (4.2-5.4); Red Cell Distribution Width 16.6 % (11.5-14.5); White Blood Count 5.5 K/mm3 (4.5-10.0)
[2022-06-28 05:27] LABS: Anion Gap 7 mmol/L (8-16); Blood Urea Nitrogen 21 mg/dL (7-17); Calcium 8.4 mg/dL (8.4-10.2); Carbon Dioxide 20 mmol/L (22-30); Chloride 111 mmol/L (98-107); Estimated CRCL calculation 24 ml/min; Estimated Glomerular Filt Rate 26; Glucose 91 mg/dL (65-110); Magnesium 2.1 mg/dL (1.6-2.3); Potassium 3.6 mmol/L (3.4-5.0); Sodium 138 mmol/L (137-145)
--- NOTE | 2022-06-28 06:03 | PC.NURSE ---
This patient, Sofia Blevins, was transferred to [facility] on 06/28/22 at 0603. Personal belongings sent with patient. Report given to Addis URIBE. Appropriate documentation sent with patient.
--- NOTE | 2022-06-28 06:11 | PC.NURSE ---
Patient received to unit and placed into room 320. Patient assessment unchanged from most recent assessment in IMU. Patient denies any discomfort at this time or Nausea with emesis. Patient placed into room. Patient denies any questions, or concerns at this time. Will continue to monitor patient's condition.
[2022-06-28 08:00] LABS: Glucose Point of Care 77 mg/dl (65-105)
[2022-06-28] MEDS: SIMVASTATIN 20 MG TABLET 40 MG PO (08:05)
[2022-06-28] MEDS: ENOXAPARIN 30 MG/0.3 ML SYRINGE SUB-Q (08:09)
[2022-06-28] MEDS: AMOXICILLIN/CLAVULANATE K 500-125 MG TAB 1 TABLET PO ×2 (08:09→21:18)
[2022-06-28] MEDS: allopurinoL 100 MG TABLET PO (08:09)
[2022-06-28] MEDS: POTASSIUM CHLORIDE 20 MEQ TABLET.ER PO (08:09)
[2022-06-28] MEDS: carvediloL 6.25 MG TABLET PO ×2 (08:10→21:18)
[2022-06-28 11:17] LABS: Glucose Point of Care 104 mg/dl (65-105)
[2022-06-28] MEDS: LOPERAMIDE HCL 2 MG CAPSULE PO (12:28)
--- NOTE | 2022-06-28 14:08 | PM.IMPN ---
Progress Note: A&P Assessment and Plan (1) Colitis: Code(s): K52.9 - Noninfective gastroenteritis and colitis, unspecified Status: Acute Assessment and Plan: Presumably infectious, she has been started on Zosyn. Stool studies ordered. Continue supportive care including analgesics and antiemetics as needed. She will be judiciously hydrated overnight. Nausea, vomiting, and diarrhea. HPI-Narrative: This is a 66-year-old female with history of heart failure with reduced ejection fraction (35 to 40% on echo in June 2019), mitral valve regurgitation, paroxysmal atrial fibrillation, hypertension, dyslipidemia, type 2 diabetes mellitus, chronic kidney disease stage 4, and sleep apnea who presented to the emergency department from home for for evaluation of nausea, vomiting, and diarrhea. Patient provides the following history. She has not been feeling well since Tuesday night when she developed severe nausea, diffuse abdominal cramping, loose stools, and a subjective fever. She had several episodes of emesis as well but that seems to have improved. She continues to have loose stools however and reports having 10 to 12 nonbloody stools since last evening. She has been taking Tylenol for the subjective fever and abdominal cramping.? She has not taken any other medications. She has not been able to hold down any other medications in last 24 hours and her blood pressures have been running high. She has not had a documented fever. She denies sick contacts, recent travel, and recent antibiotic use. She also denies cold and flu symptoms, chest pain, and shortness of breath. She was afebrile on arrival to the emergency department. Blood pressure on arrival was 218/113 but has improved to the [address] of the abdomen and pelvis showed colitis involving the transverse and descending colon. In the ED she was given a bolus of normal saline and was started on Zosyn.? She is being admitted in this setting for further treatment and evaluation. 06/28/2022 interval history: 66-year-old female presented with complaint of nausea or vomiting and diarrhea is found to have a colitis patient was treated with Zosyn, and swiche her to Augementin, patient states sees feeling little better and able to take p.o. intake however diarrhea persist and feels weak and tired, will give imodium, and start in IVF, and zofarn, also patient has history hypertension has not been taking her medication hydralazine and Coreg for sometime her blood pressure is elevated resumed her blood pressure medications and monitor, patient denies any chest pain shortness of breath or dizziness, will have a PT OT evaluate the patient. (2) Hypertension: Code(s): I10 - Essential (primary) hypertension Status: Acute Assessment and Plan: Blood pressures have been running high due to the fact that she could not hold down her medications last 24 hours. Nausea and vomiting have ceased and we will resume her antihypertensives. Continue to monitor closely. (3) Chronic kidney disease, stage 4 (severe): Code(s): N18.4 - Chronic kidney disease, stage 4 (severe) Status: Acute Assessment and Plan: Creatinine is stable on review of previous labs. (4) Type 2 diabetes mellitus: Code(s): E11.9 - Type 2 diabetes mellitus without complications Status: Acute Assessment and Plan: Hold Januvia until tolerating p.o.. Initiate sliding scale insulin, Accu-Cheks, and hypoglycemic protocol. (5) Heart failure with reduced ejection fraction: Code(s): I50.20 - Unspecified systolic (congestive) heart failure Status: Acute Assessment and Plan: Currently clinically compensated if not a bit dry. Monitor volume status closely while hydrating. Subjective Date/time seen: 06/28/22 14:08 HPI-Narrative: This is a 66-year-old female with history of heart failure with reduced ejection fraction (35 to 40% on echo in June 2019), mitral valve
--- NOTE | 2022-06-28 15:06 | WPDGIPROGNO ---
Progress Note: A&P Assessment and Plan (1) Colitis: Code(s): K52.9 - Noninfective gastroenteritis and colitis, unspecified Status: Acute Assessment and Plan: better infectious vs ischemic but better tolerating diet probably home tomorrow (2) Acute diarrhea: Code(s): R19.7 - Diarrhea, unspecified Status: Acute Assessment and Plan: improving (3) Chronic kidney disease, stage 4 (severe): Code(s): N18.4 - Chronic kidney disease, stage 4 (severe) Status: Acute Assessment and Plan: stage IV but stable (4) Type 2 diabetes mellitus: Code(s): E11.9 - Type 2 diabetes mellitus without complications Status: Acute (5) Chronic anticoagulation: Code(s): Z79.01 - senior care (current) use of anticoagulants Status: Acute (6) Heart failure with reduced ejection fraction: Code(s): I50.20 - Unspecified systolic (congestive) heart failure Status: Acute Subjective Date/time seen: 06/28/22 15:06 Interval history: better, less pain, still with diarrhea but slowing down, she is eating Review of Systems Review of Systems: All systems reviewed & are unremarkable except as noted in HPI and below Exam Const: General: comfortable and no acute distress HENMT: Face/Nose/Sinus: Normal nares present Eyes: General: appearance normal, both eyes and all related structures Neck: Neck: no JVD Resp: Auscultation: clear to auscultation bilaterally Cardio: Rate: regular rate Rhythm: regular rhythm GI: Inspection: non-distended GI Palp: Yes Soft to palpation, No Tenderness to palpation present (GI) and No Guarding due to palpation present (GI) Auscultation: normal bowel sounds Skin: General skin exam: normal color Neuro: Speech: normal speech Motor exam (neuro): 5/5 motor strength present throughout Extrem: General: normal to inspection Psych: Mental Status: mental status grossly normal Objective Data Vital Signs Vital Signs: Vital Signs - 24 hr 06/27/22 16:00 06/27/22 16:35 06/27/22 20:00 Temperature 97.0 F L 97.4 F L Pulse Rate 77 71 85 Respiratory Rate 18 20 Blood Pressure 171/82 H 178/71 H Pulse Oximetry 100 96 Oxygen Delivery 06/27/22 21:11 06/27/22 20:00 06/27/22 20:00 Temperature Pulse Rate 82 83 Respiratory Rate Blood Pressure Pulse Oximetry 96 Oxygen Delivery Room Air 06/27/22 22:00 06/27/22 23:08 06/28/22 00:00 Temperature 98.6 F Pulse Rate 82 80 78 Respiratory Rate 18 Blood Pressure 143/65 H Pulse Oximetry 100 Oxygen Delivery 06/28/22 02:00 06/28/22 04:00 06/28/22 04:00 Temperature 97.6 F Pulse Rate 78 81 82 Respiratory Rate 20 Blood Pressure 139/82 Pulse Oximetry 100 Oxygen Delivery 06/28/22 08:10 06/28/22 08:00 Temperature Pulse Rate 82 Respiratory Rate Blood Pressure Pulse Oximetry Oxygen Delivery Room Air Intake/Output Intake/Output: Intake & Output 06/25/22 06/26/22 06/27/22 06/28/22 23:59 23:59 23:59 23:59 Intake Total 1640 3130 720 Output Total 200 701 Balance 1440 2429 720 Meds/Results Medications: Active Medications Generic Name Dose Route Start Last Admin Trade Name Freq PRN Reason Stop Dose Admin Acetaminophen 650 mg 06/26/22 13:48 Acetaminophen 325 Mg Tablet PO Q6H PRN Mild Pain (1-3) or Fever Allopurinol 100 mg 06/27/22 09:00 06/28/22 08:09 Allopurinol 100 Mg Tablet PO 100 mg DAILY MARK Administration Amoxicillin/Clavulanate Potassium 1 tablet 06/27/22 21:00 06/28/22 08:09 Amoxicillin/Clavulanate K 500-125 Mg Tab PO 1 tablet Q12HR MARK Administration Carvedilol 6.25 mg 06/26/22 20:00 06/28/22 08:10 Carvedilol 6.25 Mg Tablet PO 6.25 mg Q12HR MARK Administration Dextrose 12.5 gm 06/26/22 13:48 Dextrose 50% 25 Gm/50 Ml Syringe IV PUSH PRN PRN Hypoglycemia Protocol Enoxaparin Sodium 30 mg 06/27/22 09:00 06/28/22 08:0
[2022-06-28 16:37] LABS: Glucose Point of Care 101 mg/dl (65-105)
[2022-06-28] MEDS: ZOLPIDEM TARTRATE (*CRX) 5 MG TABLET PO (21:18)
[2022-06-28 22:12] LABS: Glucose Point of Care 96 mg/dl (65-105)
[2022-06-29] VITALS: PULSE 76
[2022-06-29 04:00] VITALS: PULSE 75
[2022-06-29 05:02] VITALS: BP 148/67; PULSE 73; RESP 18; TEMP 36.1; O2SAT 100
[2022-06-29] MEDS: hydrALAZINE HCL 25 MG TABLET PO (05:46)
[2022-06-29 08:00] VITALS: PULSE 74
[2022-06-29 08:04] LABS: Hematocrit 35.1 % (37.0-47.0); Mean Corpuscular HGB Conc 31.3 g/dl (32-36); Mean Corpuscular Hemoglobin 27.9 pg (26-34); Mean Corpuscular Volume 89.1 fl (80-100); Mean Platelet Volume 12.3 fl (7.4-10.4); Platelet Count Result 216 k/mm3 (150-375); Red Blood Count 3.94 M/mm3 (4.2-5.4); Red Cell Distribution Width 16.6 % (11.5-14.5); White Blood Count 6.6 K/mm3 (4.5-10.0)
[2022-06-29 08:15] LABS: Glucose Point of Care 117 mg/dl (65-105)
[2022-06-29 08:20] LABS: Anion Gap 7 mmol/L (8-16); Blood Urea Nitrogen 19 mg/dL (7-17); Calcium 8.5 mg/dL (8.4-10.2); Carbon Dioxide 22 mmol/L (22-30); Chloride 111 mmol/L (98-107); Estimated CRCL calculation 28 ml/min; Estimated Glomerular Filt Rate 30; Glucose 92 mg/dL (65-110); Magnesium 2.2 mg/dL (1.6-2.3); Potassium 3.9 mmol/L (3.4-5.0); Sodium 140 mmol/L (137-145)
[2022-06-29] MEDS: POTASSIUM CHLORIDE 20 MEQ TABLET.ER PO (08:39)
[2022-06-29] MEDS: LOPERAMIDE HCL 2 MG CAPSULE PO (08:39)
[2022-06-29] MEDS: allopurinoL 100 MG TABLET PO (08:42)
[2022-06-29 08:43] VITALS: PULSE 78
[2022-06-29] MEDS: SIMVASTATIN 20 MG TABLET 40 MG PO (08:43)
[2022-06-29] MEDS: ENOXAPARIN 30 MG/0.3 ML SYRINGE SUB-Q (08:43)
[2022-06-29] MEDS: carvediloL 6.25 MG TABLET PO (08:43)
[2022-06-29] MEDS: AMOXICILLIN/CLAVULANATE K 500-125 MG TAB 1 TABLET PO (08:44)
--- NOTE | 2022-06-29 10:20 | P.DS_ITS ---
DS: Admitting Diagnosis Discharge Date 06/29/2022 Admitting Diagnosis Nausea, vomiting, and diarrhea. DS: Discharge Diagnosis Discharge Diagnosis (1) Colitis: Code(s): K52.9 - Noninfective gastroenteritis and colitis, unspecified Status: Acute Assessment and Plan: Presumably infectious, she has been started on Zosyn. Stool studies ordered. Continue supportive care including analgesics and antiemetics as needed. She will be judiciously hydrated overnight. Nausea, vomiting, and diarrhea. HPI-Narrative: This is a 66-year-old female with history of heart failure with reduced ejection fraction (35 to 40% on echo in June 2019), mitral valve regurgitation, paroxysmal atrial fibrillation, hypertension, dyslipidemia, type 2 diabetes mellitus, chronic kidney disease stage 4, and sleep apnea who presented to the emergency department from home for for evaluation of nausea, vomiting, and diarrhea. Patient provides the following history. She has not been feeling well since Tuesday night when she developed severe nausea, diffuse abdominal cramping, loose stools, and a subjective fever. She had several episodes of emesis as well but that seems to have improved. She continues to have loose stools however and reports having 10 to 12 nonbloody stools since last evening. She has been taking Tylenol for the subjective fever and abdominal cramping.? She has not taken any other medications. She has not been able to hold down any other medications in last 24 hours and her blood pressures have been running high. She has not had a documented fever. She denies sick contacts, recent travel, and recent antibiotic use. She also denies cold and flu symptoms, chest pain, and shortness of breath. She was afebrile on arrival to the emergency department. Blood pressure on arrival was 218/113 but has improved to the [address] of the abdomen and pelvis showed colitis involving the transverse and descending colon. In the ED she was given a bolus of normal saline and was started on Zosyn.? She is being admitted in this setting for further treatment and evaluation. 06/28/2022 interval history: 66-year-old female presented with complaint of nausea or vomiting and diarrhea is found to have a colitis patient was treated with Zosyn, and swiche her to Augementin, patient states sees feeling little better and able to take p.o. intake however diarrhea persist and feels weak and tired, will give imodium, and start in IVF, and zofarn, also patient has history hypertension has not been taking her medication hydralazine and Coreg for sometime her blood pressure is elevated resumed her blood pressure medications and monitor, patient denies any chest pain shortness of breath or dizziness, will have a PT OT evaluate the patient. (2) Hypertension: Code(s): I10 - Essential (primary) hypertension Status: Acute Assessment and Plan: Blood pressures have been running high due to the fact that she could not hold down her medications last 24 hours. Nausea and vomiting have ceased and we will resume her antihypertensives. Continue to monitor closely. (3) Chronic kidney disease, stage 4 (severe): Code(s): N18.4 - Chronic kidney disease, stage 4 (severe) Status: Acute Assessment and Plan: Creatinine is stable on review of previous labs. (4) Type 2 diabetes mellitus: Code(s): E11.9 - Type 2 diabetes mellitus without complications Status: Acute Assessment and Plan: Hold Januvia until tolerating p.o.. Initiate sliding scale insulin, Accu-Cheks, and hypoglycemic protocol. (5) Heart failure with reduced ejection fraction: Code(s): I50.
[2022-06-29 12:05] LABS: Glucose Point of Care 88 mg/dl (65-105)
[2022-06-29 14:00] VITALS: BP 141/69; PULSE 72; RESP 16; TEMP 36.7; O2SAT 99
--- NOTE | 2022-06-29 14:00 | WPDGIPROGNO ---
Progress Note: A&P Assessment and Plan (1) Colitis: Code(s): K52.9 - Noninfective gastroenteritis and colitis, unspecified Status: Acute Assessment and Plan: improved, no more pain and tolerating diet infectious vs ischemic but better tolerating diet going home (2) Acute diarrhea: Code(s): R19.7 - Diarrhea, unspecified Status: Acute Assessment and Plan: improving (3) Chronic kidney disease, stage 4 (severe): Code(s): N18.4 - Chronic kidney disease, stage 4 (severe) Status: Acute Assessment and Plan: stage IV but stable (4) Type 2 diabetes mellitus: Code(s): E11.9 - Type 2 diabetes mellitus without complications Status: Acute (5) Chronic anticoagulation: Code(s): Z79.01 - manager long term care (current) use of anticoagulants Status: Acute (6) Heart failure with reduced ejection fraction: Code(s): I50.20 - Unspecified systolic (congestive) heart failure Status: Acute Subjective Date/time seen: 06/29/22 14:00 Interval history: no pain, less diarrhea. She is going home today Review of Systems Review of Systems: All systems reviewed & are unremarkable except as noted in HPI and below Exam Const: General: comfortable and no acute distress HENMT: Face/Nose/Sinus: Normal nares present Eyes: General: appearance normal, both eyes and all related structures Neck: Neck: no JVD Resp: Auscultation: clear to auscultation bilaterally Cardio: Rate: regular rate Rhythm: regular rhythm GI: Inspection: non-distended GI Palp: Yes Soft to palpation, No Tenderness to palpation present (GI) and No Guarding due to palpation present (GI) Auscultation: normal bowel sounds Skin: General skin exam: normal color Neuro: Speech: normal speech Motor exam (neuro): 5/5 motor strength present throughout Extrem: General: normal to inspection Psych: Mental Status: mental status grossly normal Objective Data Vital Signs Vital Signs: Vital Signs - 24 hr 06/28/22 16:00 06/28/22 16:00 06/28/22 21:18 Temperature 97.8 F Pulse Rate 78 82 76 Respiratory Rate 17 Blood Pressure 175/99 H Pulse Oximetry 100 Oxygen Delivery 06/28/22 20:00 06/28/22 22:40 06/28/22 20:00 Temperature 97.4 F L Pulse Rate 78 86 Respiratory Rate 16 Blood Pressure 172/80 H Pulse Oximetry 100 Oxygen Delivery Room Air 06/29/22 05:02 06/29/22 00:00 06/29/22 04:00 Temperature 96.9 F L Pulse Rate 73 76 75 Respiratory Rate 18 Blood Pressure 148/67 H Pulse Oximetry 100 Oxygen Delivery 06/29/22 08:43 Temperature Pulse Rate 78 Respiratory Rate Blood Pressure Pulse Oximetry Oxygen Delivery Intake/Output Intake/Output: Intake & Output 06/26/22 06/27/22 06/28/22 06/29/22 23:59 23:59 23:59 23:59 Intake Total 1640 3130 2019 Output Total 200 701 Balance 1440 2429 2019 Meds/Results Medications: Active Medications Generic Name Dose Route Start Last Admin Trade Name Freq PRN Reason Stop Dose Admin Acetaminophen 650 mg 06/26/22 13:48 Acetaminophen 325 Mg Tablet PO Q6H PRN Mild Pain (1-3) or Fever Allopurinol 100 mg 06/27/22 09:00 06/29/22 08:42 Allopurinol 100 Mg Tablet PO 100 mg DAILY MARK Administration Amoxicillin/Clavulanate Potassium 1 tablet 06/27/22 21:00 06/29/22 08:44 Amoxicillin/Clavulanate K 500-125 Mg Tab PO 1 tablet Q12HR MARK Administration Carvedilol 6.25 mg 06/26/22 20:00 06/29/22 08:43 Carvedilol 6.25 Mg Tablet PO 6.25 mg Q12HR MARK Administration Dextrose 12.5 gm 06/26/22 13:48 Dextrose 50% 25 Gm/50 Ml Syringe IV PUSH PRN PRN Hypoglycemia Protocol Enoxaparin Sodium 30 mg 06/27/22 09:00 06/29/22 08:43 Enoxaparin 30 Mg/0.3 Ml Syringe SUB-Q 30 mg DAILY MARK Administration Glucagon 1 mg 06/26/22 13:48 Glucagon For Inj 1 Mg Vial IM PRN PRN Hypoglycemia Protocol Glucose 1
== END 2022-06-29 15:50 | disposition home or self-care (01) | DRG 392 ==
LOC: ANHED 12:14 → ANHIMU 14:03 → ANH3MEDSUR 06-28 06:06
PROVIDERS: Physician Assistant; Admitting Provider Family Medicine; Emergency Provider Emergency Medicine; PCP Family Medicine; Visit Provider Family Medicine
DX: A09 Infectious gastroenteritis and colitis, unspecified (principal); N18.4 Chronic kidney disease, stage 4 (severe); I50.20 Unspecified systolic (congestive) heart failure; I13.0 Hypertensive heart and chronic kidney disease with heart failure and stage 1 through stage 4 chronic kidney disease, or unspecified chronic kidney disease; K55.9 Vascular disorder of intestine, unspecified; E11.22 Type 2 diabetes mellitus with diabetic chronic kidney disease; I48.0 Paroxysmal atrial fibrillation; Z79.01 Long term (current) use of anticoagulants; Z79.899 Other long term (current) drug therapy
CPT/HCPCS: 36415; 74176; 80048; 80053; 81001; 82948; 83036; 83690; 83735; 84443; 85025; 85027; 96361; 96365; 96366; 96367; 96372; 96375; 99285; A9270; G0378; J0131; J1650; J2543; J7030